=== PATIENT | female | born 1995 | race Caucasian/White ===

== ENCOUNTER 2018-09-04 22:32 | Emergency (ER) | payer OTHER, SELFPAY ==
--- NOTE | 2018-09-04 22:37 | ED_ITS ---
HPI - General Adult General Chief complaint: Shortness of Breath/Dyspnea Stated complaint: ASTHMA ATTACK SICK WITH A COLD Time Seen by Provider: 09/04/18 22:34 Source: patient Mode of arrival: ambulatory Limitations: no limitations History of Present Illness HPI narrative: 22-year-old female here for evaluation of an asthma attack which he thinks is a cold. Patient does have a history of asthma. Has never been intubated or admitted before. Does have a Flovent inhaler at home. States she on average only occasionally uses her rescue albuterol inhaler. She states that a couple weeks ago she was seen at an outside Emergency Department for an asthma attack after being exposed to animals. She states she was started on prednisone. She stopped the prednisone approximately 10 days ago. She states that over the past 12-24 hours she has had a recurrence of the chest tightness and cough. She does so has sinus congestion. She did use her albuterol at home. She does not have a nebulizer at home. No fevers. Related Data Allergies Allergy/AdvReac Type Severity Reaction Status Date / Time No Known Drug Allergies Allergy Verified 09/04/18 22:52 Review of Systems Constitutional Denies chills and Denies fever(s) Eyes Denies itchy eyes ENT Ears, Nose, Mouth, and Throat: Denies lip swelling, Denies throat swelling and Denies tongue swelling Cardiovascular Denies chest pain, Denies palpitations and Reports dyspnea Respiratory Reports cough, Denies excessive phlegm production, Reports dyspnea and Reports wheezing Gastrointestinal Gastrointestinal: Denies change in bowel habits Musculoskeletal Denies myalgias and Denies arthralgias Integumentary/Breasts Denies rash Endocrine Denies palpitations Allergic/Immunologic Denies urticaria, Denies itchy eyes, Denies lip swelling, Denies throat swelling , Denies tongue swelling and Reports wheezing PFSH Medical History Asthma (Acute) Surgical History No pertinent past surgical history (Acute) Social History Smoking Status: Never smoker Exam Initial Vital Signs Initial Vital Signs: Vital Signs Temperature 98.5 F 09/04/18 22:49 Pulse Rate 107 H 09/04/18 22:49 Respiratory Rate 24 09/04/18 22:49 Blood Pressure 101/65 09/04/18 22:49 Pulse Oximetry 98 09/04/18 22:49 Const General: cooperative, healthy appearing, comfortable, well developed, well groomed and No acute distress Orientation: alert, awake and oriented x3 HENMT Head: normal to inspection Resp Effort & Inspection: no grunting, not labored, no nasal flaring, no retractions and tachypneic Auscultation: other (Decreased breath sounds bilaterally with inspiratory and expiratory wheezing) Cardio Rate: tachycardic Rhythm: regular rhythm Skin Lesions: no lesions Rashes: no rashes Neuro General: alert, awake and oriented x3 Extrem General: normal to inspection and capillary refill normal Psych Appearance: grossly normal and well kempt Course Orders Ordered: Discontinued Medications Albuterol/Ipratropium (Duoneb) 3 ml INH NOW ONE Stop: 09/04/18 22:43 Last Admin: 09/04/18 22:47 Dose: 3 ml Albuterol/Ipratropium (Duoneb) 3 ml INH NOW ONE Stop: 09/04/18 23:45 Last Admin: 09/04/18 23:48 Dose: 3 ml Vital Signs - 8 hr 09/04/18 22:49 09/04/18 23:52 Temperature 98.5 F Pulse Rate 107 H 88 Respiratory Rate 24 18 Blood Pressure 101/65 Pulse Oximetry 98 97 Medical Decision Making MDM Narrative Medical decision making narrative: Patient reports a great improvement in her symptoms after 2 nebulizer treatments here in the emergency department. Will hold on steroids secondary to her status. Patient is afebrile. Will hold on the chest x-ray secondary to my low concern for pneumonia and also her status. She does have albuterol at home. Patient stated that she felt like she could go home after the 2nd nebulizer treatment. She was given return precautions. She expressed understanding and agreement with plan. Discharge Plan Departure Patient Disposition: Home Clinical Impression: Asthma with exacerbation Instructions: Asthma -- Adult Activity Restrictions/Additional Instructions: I recommend that every 4 hr for the next 24 hr while your wake you take a couple puffs of your albuterol inhaler. Contact your primary care doctor for a follow-up. Keep all of your scheduled medical appointments to include OB appointments. I do recommend you talk with her OB provider about your asthma. Return to the emergency department for any new or worsening symptoms
[2018-09-04] MEDS: ALBUTEROL/IPRATROPIUM 3 ML AMPUL INH ×2 (22:47→23:48)
[2018-09-04 22:49] VITALS: BP 101/65; PULSE 107; RESP 24; TEMP 36.9; O2SAT 98
[2018-09-04 23:52] VITALS: PULSE 88; RESP 18; O2SAT 97
[2018-09-05] VITALS: PULSE 118; RESP 22; O2SAT 96
[2018-09-05 00:58] VITALS: BP 127/59; PULSE 101; RESP 18; O2SAT 98
== END 2018-09-05 00:59 | disposition home or self-care (01) ==
PROVIDERS: Emergency Provider Emergency Medicine
DX: J45.901 Unspecified asthma with (acute) exacerbation (principal)
CPT/HCPCS: 94640; 99282

== ENCOUNTER 2018-11-02 23:58 | Outpatient (CLI) | payer OTHER, SELFPAY | END 2018-11-03 00:30 | disposition home or self-care (01) | LOC: OB 11-03 14:57 | PROVIDERS: Visit Provider Specialist | DX: O36.8120 Decreased fetal movements, second trimester, not applicable or unspecified (principal); Z3A.27 27 weeks gestation of pregnancy; W19.XXXA Unspecified fall, initial encounter | CPT/HCPCS: 59025; G0378; G0379 ==

== ENCOUNTER 2018-12-18 14:04 | Observation (INO) | payer OTHER, SELFPAY ==
[2018-12-18 15:13] LABS: Add Manual Diff / Slide Review NO; Basophils Absolute Auto 0 /uL (0-100); Basophils Percent Auto 0.4 % (0-2); Eosinophils Absolute Auto 200 /uL (0-450); Eosinophils Percent Auto 1.7 % (2-4); Hematocrit 37.4 % (36-46); Hemoglobin 12.1 g/dL (12.0-16.0); Lymphocytes Absolute Auto 1800 /uL (1100-4500); Lymphocytes Percent Auto 16.2 % (25-40); Mean Corpuscular HGB Conc 32.4 % (30-36); Mean Corpuscular Hemoglobin 27.5 PG (26-34); Mean Corpuscular Volume 84.9 fL (80-100); Monocytes Absolute Auto 800 /uL (0-900); Monocytes Percent Auto 7.4 % (3-14); Neutrophils Absolute Auto 8300 /uL (1500-7000); Neutrophils Percent Auto 74.3 % (50-75); Platelet Count 255 X10^3/uL (150-400); Red Blood Cell Count 4.41 X10^6/uL (4.0-5.2); Red Cell Distribution Width 13.8 % (11.6-14.8); White Blood Cell Count 11.2 X10^3/uL (4.5-11.0)
[2018-12-18 15:29] LABS: Aspartate Aminotransferase 27 IU/L (14-36); Blood Urea Nitrogen 7 mg/dL (7-17); Estimated Glomerular Filt Rate > 60.0 mL/min (>60); Uric Acid 4.2 mg/dL (2.5-6.2)
== END 2018-12-18 16:10 | disposition home or self-care (01) ==
PROVIDERS: Admitting Provider Obstetrics & Gynecology; Visit Provider Obstetrics & Gynecology
DX: O13.3 Gestational [pregnancy-induced] hypertension without significant proteinuria, third trimester (principal); Z3A.33 33 weeks gestation of pregnancy
CPT/HCPCS: 36415; 59025; 59050; 84450; 84550; 85025; G0378; G0379

== ENCOUNTER 2018-12-22 18:46 | Outpatient (CLI) | payer OTHER, SELFPAY ==
[2018-12-22 19:59] LABS: RBC Urine None Seen (0-5/HPF)
[2018-12-22 20:00] LABS: Appearance Urine UA CLOUDY; Bilirubin Urine UA NEGATIVE (NEGATIVE); Color Urine UA YELLOW; Glucose Urine UA NEGATIVE (Negative); Ketones Urine UA NEGATIVE (NEGATIVE); Leukocyte Esterase Urine UA TRACE (NEGATIVE); Nitrite Urine UA NEGATIVE (Negative); Occult Blood Urine UA NEGATIVE (Negative); Protein Urine UA 1+ (Negative); Specific Gravity Urine UA 1.025 (1.000-1.035); Urobilinogen Urine UA 0.2 E.U./dL (0.2)
[2018-12-22 20:10] LABS: WBC Urine 10-30/HPF (0-5/HPF)
[2018-12-22 20:11] LABS: Amorphous Sediment Urine 1+; Bacteria Urine Many (>30); Culture Indicated Urine Specimen Cultured; Mucus Urine 2+ (Negative); Squamous Epithelial Cell Urine 5-10 /HPF; Transitional Epi Cells Urine 1-5/HPF (0-5/HPF)
[2018-12-22 20:33] LABS: Add Manual Diff / Slide Review NO; Basophils Absolute Auto 0 /uL (0-100); Basophils Percent Auto 0.4 % (0-2); Eosinophils Absolute Auto 300 /uL (0-450); Eosinophils Percent Auto 2.7 % (2-4); Hematocrit 35.6 % (36-46); Lymphocytes Absolute Auto 1900 /uL (1100-4500); Lymphocytes Percent Auto 20.1 % (25-40); Mean Corpuscular HGB Conc 33.8 % (30-36); Mean Corpuscular Hemoglobin 28.2 PG (26-34); Mean Corpuscular Volume 83.4 fL (80-100); Monocytes Absolute Auto 800 /uL (0-900); Monocytes Percent Auto 8.1 % (3-14); Neutrophils Absolute Auto 6500 /uL (1500-7000); Neutrophils Percent Auto 68.7 % (50-75); Platelet Count 261 X10^3/uL (150-400); Red Blood Cell Count 4.26 X10^6/uL (4.0-5.2); Red Cell Distribution Width 13.8 % (11.6-14.8); White Blood Cell Count 9.4 X10^3/uL (4.5-11.0)
[2018-12-22 20:44] LABS: Aspartate Aminotransferase 34 IU/L (14-36); Blood Urea Nitrogen 9 mg/dL (7-17); Estimated Glomerular Filt Rate > 60.0 mL/min (>60); Uric Acid 4.5 mg/dL (2.5-6.2)
== END 2018-12-22 21:45 | disposition home or self-care (01) ==
LOC: OB 12-24 14:08
PROVIDERS: Visit Provider Obstetrics & Gynecology
DX: O13.3 Gestational [pregnancy-induced] hypertension without significant proteinuria, third trimester (principal); Z3A.34 34 weeks gestation of pregnancy
CPT/HCPCS: 36415; 59025; 59050; 81001; 84450; 84550; 85025; 87086; G0378; G0379

== ENCOUNTER 2018-12-25 16:42 | Outpatient (CLI) | payer OTHER, SELFPAY ==
[2018-12-25 17:32] LABS: Add Manual Diff / Slide Review NO; Basophils Absolute Auto 0 /uL (0-100); Basophils Percent Auto 0.2 % (0-2); Eosinophils Absolute Auto 300 /uL (0-450); Eosinophils Percent Auto 2.8 % (2-4); Hematocrit 35.8 % (36-46); Hemoglobin 11.9 g/dL (12.0-16.0); Lymphocytes Absolute Auto 1700 /uL (1100-4500); Lymphocytes Percent Auto 17.1 % (25-40); Mean Corpuscular HGB Conc 33.3 % (30-36); Mean Corpuscular Hemoglobin 27.8 PG (26-34); Mean Corpuscular Volume 83.6 fL (80-100); Monocytes Absolute Auto 800 /uL (0-900); Monocytes Percent Auto 7.6 % (3-14); Neutrophils Absolute Auto 7400 /uL (1500-7000); Neutrophils Percent Auto 72.3 % (50-75); Platelet Count 266 X10^3/uL (150-400); Red Blood Cell Count 4.28 X10^6/uL (4.0-5.2); Red Cell Distribution Width 13.7 % (11.6-14.8); White Blood Cell Count 10.2 X10^3/uL (4.5-11.0)
[2018-12-25 17:51] LABS: Alanine Aminotransferase 30 IU/L (9-52); Albumin 3.2 g/dL (3.5-5.0); Albumin Globulin Ratio 1.1 (1.0-2.8); Alkaline Phosphatase 147 U/L (38-126); Aspartate Aminotransferase 24 IU/L (14-36); BUN Creatinine Ratio 13.3 (6-22); Bilirubin Total 0.2 mg/dL (0.2-1.3); Bilirubin Unconjugated 0.2 mg/dL (0.0-1.1); Blood Urea Nitrogen 8 mg/dL (7-17); Calcium 8.9 mg/dL (8.4-10.2); Carbon Dioxide 24 mmol/L (22-32); Chloride 108 mmol/L (98-107); Estimated Glomerular Filt Rate > 60.0 mL/min (>60); Globulin 2.9 g/dL (1.7-4.1); Glucose 83 mg/dL (70-100); HEMOLYSIS < 15 (0-50); Potassium 3.9 mmol/L (3.4-5.1); Sodium 138 mmol/L (137-145); Total Protein 6.1 g/dL (6.3-8.2); Uric Acid 4.7 mg/dL (2.5-6.2)
--- NOTE | 2018-12-25 18:27 | PM.OBTRLD ---
Visit Information Visit Information Date of evaluation: 12/25/18 Primary OB Provider: Liv Almazan On-call OB Provider: Vinita Hardy Reason for Evaluation: Yes non-stress test non-stress test reason: hypertension/pre-eclampsia Vital Signs Vital Signs: Blood pressure range 145/95 to 132/82 [facility] Medical History (Updated 12/25/18 @ 18:40 by Vinita Hardy MD) Asthma (Acute) Surgical History (Updated 09/04/18 @ 23:21 by Oliver Serna DO) No pertinent past surgical history (Acute) Social History Smoking Status: Never smoker Social History Smoking Status: Never smoker Objective Labs Result Diagrams: 12/25/18 17:22 12/25/18 17:22 Labs: Laboratory Results - last 24 hr 12/25/18 12/25/18 17:22 17:22 WBC 10.2 RBC 4.28 Hgb 11.9 L Hct 35.8 L MCV 83.6 MCH 27.8 MCHC 33.3 RDW 13.7 Plt Count 266 Neut % (Auto) 72.3 Lymph % (Auto) 17.1 L [place] % (Auto) 7.6 Eos % (Auto) 2.8 Baso % (Auto) 0.2 Neut # (Auto) 7400 H Lymph # (Auto) 1700 [place] # (Auto) 800 Eos # (Auto) 300 Baso # (Auto) 0 Sodium 138 Potassium 3.9 Chloride 108 H Carbon Dioxide 24 BUN 8 Creatinine 0.60 Estimated GFR > 60.0 BUN/Creatinine Ratio 13.3 Glucose 83 Uric Acid 4.7 Calcium 8.9 Total Bilirubin 0.2 Conjugated Bilirubin 0.0 Unconjugated Bilirubin 0.2 AST 24 ALT 30 Alkaline Phosphatase 147 H Total Protein 6.1 L Albumin 3.2 L Globulin 2.9 Albumin/Globulin Ratio 1.1 Evaluation Evaluation Baseline heart rate: 130 Variability: Moderate (11-25) monitor accelerations: Present monitor decelerations: Absent Contraction Frequency (minutes): 0 Category of Tracing: I Laboratory results: Laboratory Tests 12/25/18 12/25/18 17:22 17:22 WBC 10.2 RBC 4.28 Hgb 11.9 L Hct 35.8 L MCV 83.6 MCH 27.8 MCHC 33.3 RDW 13.7 Plt Count 266 Neut % (Auto) 72.3 Lymph % (Auto) 17.1 L [place] % (Auto) 7.6 Eos % (Auto) 2.8 Baso % (Auto) 0.2 Neut # (Auto) 7400 H Lymph # (Auto) 1700 [place] # (Auto) 800 Eos # (Auto) 300 Baso # (Auto) 0 Sodium 138 Potassium 3.9 Chloride 108 H Carbon Dioxide 24 BUN 8 Creatinine 0.60 Estimated GFR > 60.0 BUN/Creatinine Ratio 13.3 Glucose 83 Uric Acid 4.7 Calcium 8.9 Total Bilirubin 0.2 Conjugated Bilirubin 0.0 Unconjugated Bilirubin 0.2 AST 24 ALT 30 Alkaline Phosphatase 147 H Total Protein 6.1 L Albumin 3.2 L Globulin 2.9 Albumin/Globulin Ratio 1.1 Diagnosis, Plan/Disposition Final Diagnosis (1) Hypertension affecting in third trimester: Current Visit: Yes Status: Acute Problem details: 34 week 6 day with hypertension, beginning proteinuria with stable PIH labs Plan/Disposition Plan: Patient is to follow up in 3 days. She is to rest and call if she has increasing headache with scotomata, decreased movement, other concerns OB Disposition: home
--- NOTE | 2018-12-25 18:30 | P.TNLD_ITS ---
Visit Information Visit Information Date of evaluation: 12/25/18 Primary OB Provider: Liv Almazan On-call OB Provider: Vinita Hardy Reason for Evaluation: Yes non-stress test non-stress test reason: hypertension/pre-eclampsia Vital Signs Vital Signs: Blood pressure range 145/95 to 132/82 [facility] Medical History (Updated 12/25/18 @ 18:40 by Vinita Hardy MD) Asthma (Acute) Surgical History (Updated 09/04/18 @ 23:21 by Oliver Serna DO) No pertinent past surgical history (Acute) Social History Smoking Status: Never smoker Social History Smoking Status: Never smoker Objective Labs Result Diagrams: 12/25/18 17:22 12/25/18 17:22 Labs: Laboratory Results - last 24 hr 12/25/18 12/25/18 17:22 17:22 WBC 10.2 RBC 4.28 Hgb 11.9 L Hct 35.8 L MCV 83.6 MCH 27.8 MCHC 33.3 RDW 13.7 Plt Count 266 Neut % (Auto) 72.3 Lymph % (Auto) 17.1 L [place] % (Auto) 7.6 Eos % (Auto) 2.8 Baso % (Auto) 0.2 Neut # (Auto) 7400 H Lymph # (Auto) 1700 [place] # (Auto) 800 Eos # (Auto) 300 Baso # (Auto) 0 Sodium 138 Potassium 3.9 Chloride 108 H Carbon Dioxide 24 BUN 8 Creatinine 0.60 Estimated GFR > 60.0 BUN/Creatinine Ratio 13.3 Glucose 83 Uric Acid 4.7 Calcium 8.9 Total Bilirubin 0.2 Conjugated Bilirubin 0.0 Unconjugated Bilirubin 0.2 AST 24 ALT 30 Alkaline Phosphatase 147 H Total Protein 6.1 L Albumin 3.2 L Globulin 2.9 Albumin/Globulin Ratio 1.1 Evaluation Evaluation Baseline heart rate: 130 Variability: Moderate (11-25) monitor accelerations: Present monitor decelerations: Absent Contraction Frequency (minutes): 0 Category of Tracing: I Laboratory results: Laboratory Tests 12/25/18 12/25/18 17:22 17:22 WBC 10.2 RBC 4.28 Hgb 11.9 L Hct 35.8 L MCV 83.6 MCH 27.8 MCHC 33.3 RDW 13.7 Plt Count 266 Neut % (Auto) 72.3 Lymph % (Auto) 17.1 L [place] % (Auto) 7.6 Eos % (Auto) 2.8 Baso % (Auto) 0.2 Neut # (Auto) 7400 H Lymph # (Auto) 1700 [place] # (Auto) 800 Eos # (Auto) 300 Baso # (Auto) 0 Sodium 138 Potassium 3.9 Chloride 108 H Carbon Dioxide 24 BUN 8 Creatinine 0.60 Estimated GFR > 60.0 BUN/Creatinine Ratio 13.3 Glucose 83 Uric Acid 4.7 Calcium 8.9 Total Bilirubin 0.2 Conjugated Bilirubin 0.0 Unconjugated Bilirubin 0.2 AST 24 ALT 30 Alkaline Phosphatase 147 H Total Protein 6.1 L Albumin 3.2 L Globulin 2.9 Albumin/Globulin Ratio 1.1 Diagnosis, Plan/Disposition Final Diagnosis (1) Hypertension affecting in third trimester: Current Visit: Yes Status: Acute Problem details: 34 week 6 day with hypertension, beginning proteinuria with stable PIH labs Plan/Disposition Plan: Patient is to follow up in 3 days. She is to rest and call if she has increasing headache with scotomata, decreased movement, other concerns OB Disposition: home
== END 2018-12-25 18:36 | disposition home or self-care (01) ==
LOC: LABOR 18:33 → OB 12-28 10:05
PROVIDERS: Specialist; Visit Provider Obstetrics & Gynecology
DX: O16.3 Unspecified maternal hypertension, third trimester (principal); Z3A.34 34 weeks gestation of pregnancy
CPT/HCPCS: 36415; 59025; 59050; 80053; 80076; 84550; 85025; 87653; G0378; G0379

== ENCOUNTER 2018-12-30 10:23 | Inpatient (IN) | payer OTHER, SELFPAY ==
--- NOTE | 2018-12-30 11:08 | P.HPOB_ITS ---
OB HPI Date/Time Date of admission: 12/30/18 Date Patient Seen: 12/30/18 Time Patient Seen: 11:06 History of Present Condition Chief complaint: OBSERVATION : 1 Para: 0 Estimated Date of Delivery: 01/26/19 Estimated Gestational Age (weeks): 36 Narrative: Day Solo is a 23 year old female with signs and symptoms concerning for preeclampsia Indications Indication for induction OB: medical complication (Preeclampsia) History of Present care: good care and initiated at week # (7) Dating criteria: based on 1st trimester US only Ultrasounds: normal mid trimester US Obstetrical complications: preeclampsia Medical complications: none Preadmission Labs Blood type: O (+) positive -: Antibody screen: negative, GBS status: negative, HBsAG: negative, HIV: negative and RPR/VDLR: negative -: Chlamydia screen: not detected and Gonorrhea screen: not detected -: Rubella: immune and Varicella: immune HCAB: negative Quad screen: Normal 1 hr GTT: 143 Narrative: I do not see results for 3 hour GTT Evaluation Evaluation Baseline heart rate: 140 Variability: Moderate (11-25) monitor accelerations: Present monitor decelerations: Absent Contraction Frequency (minutes): 0 Category of Tracing: I Cervical dilation (cm): 1 Cervical effacement (%): 80 station: -3 PFSH Medical History (Updated 12/25/18 @ 18:40 by Vinita Hardy MD) Asthma (Acute) Surgical History (Updated 09/04/18 @ 23:21 by Oliver Serna DO) No pertinent past surgical history (Acute) Social History Smoking Status: Never smoker Social History Smoking Status: Never smoker Meds Home Medications Medication Instructions Recorded Confirmed Type albuterol sulfate [ProAir HFA] 1 - 2 puff INHALATION PRN PRN 12/30/18 12/30/18 History fluticasone propion-salmeterol 2 puff INHALATION BID 12/30/18 12/30/18 History [Advair Diskus] venlafaxine [Effexor XR] 150 mg PO DAILY 12/30/18 12/30/18 History Allergies Allergy/AdvReac Type Severity Reaction Status Date / Time No Known Drug Allergies Allergy Verified 09/04/18 22:52 Review of Systems Review of Systems Patient complaining of extreme swelling of her extremities, headache without scotomata, good movement, no leakage of fluid. All systems reviewed & are unremarkable except as noted in HPI and below Exam Narrative Exam Narrative: HEENT exam within normal limits. Lungs are clear to auscultation percussion. Heart is regular rate and rhythm no S3-S4 or murmurs. Abdomen is soft, nontender. The patient has +2 pitting edema with brisk DTRs. Objective Labs Result Diagrams: 12/30/18 11:40 12/30/18 11:40 Labs: Normal LFTs, a 24 hr urine protein is 315 mg per day Assessment and Plan Assessment and Plan Assessment and Plan narrative: 36 week gestation with mild preeclampsia. Will proceed with induction. Will monitor for need for antihypertensive medication and magnesium sulfate. Time Spent with Patient Total time spent with greater than 50% in coordination of care (as documented) sonido carr patient's floor/unit and/or counseling patient:: 15-24 minutes
[2018-12-30 12:01] LABS: Collection Time Urine 24 Hours; Creat Clearance, Corrected 115.4 mL/MIN; Creatinine Clearance Urine 158.7 mL/MIN; Creatinine Urine Random 91.4 mg/dL; Patient Height Urine 66 inches; Patient Weight Urine 303 lbs; Protein (Total) Urine Random 21 mg/dL (0-12); Total Protein 24 Hour Urine 315 mg/day (42-225); Total Volume Urine 1500 mL
[2018-12-30 12:52] LABS: Strep Grp B PCR NEG for Grp B Strep
[2018-12-30 12:58] LABS: Add Manual Diff / Slide Review NO; Basophils Absolute Auto 0 /uL (0-100); Basophils Percent Auto 0.3 % (0-2); Eosinophils Absolute Auto 500 /uL (0-450); Eosinophils Percent Auto 4.4 % (2-4); Hematocrit 39.7 % (36-46); Hemoglobin 12.9 g/dL (12.0-16.0); Lymphocytes Absolute Auto 2600 /uL (1100-4500); Lymphocytes Percent Auto 21.9 % (25-40); Mean Corpuscular HGB Conc 32.6 % (30-36); Mean Corpuscular Hemoglobin 27.4 PG (26-34); Mean Corpuscular Volume 84.2 fL (80-100); Monocytes Absolute Auto 1000 /uL (0-900); Monocytes Percent Auto 8.2 % (3-14); Neutrophils Absolute Auto 7800 /uL (1500-7000); Neutrophils Percent Auto 65.2 % (50-75); Platelet Count 286 X10^3/uL (150-400); Red Blood Cell Count 4.72 X10^6/uL (4.0-5.2); Red Cell Distribution Width 13.9 % (11.6-14.8); White Blood Cell Count 11.9 X10^3/uL (4.5-11.0)
[2018-12-30] MEDS: PENICILLIN G POTASSIUM 5,000,000 UNIT in DEXTROSE 5% IN WATER 250 ML IV (13:00)
[2018-12-30 13:18] LABS: Alanine Aminotransferase 31 IU/L (9-52); Albumin 3.8 g/dL (3.5-5.0); Albumin Globulin Ratio 1.3 (1.0-2.8); Alkaline Phosphatase 178 U/L (38-126); Aspartate Aminotransferase 33 IU/L (14-36); Bilirubin Total 0.3 mg/dL (0.2-1.3); Blood Urea Nitrogen 6 mg/dL (7-17); Calcium 9.3 mg/dL (8.4-10.2); Carbon Dioxide 21 mmol/L (22-32); Chloride 107 mmol/L (98-107); Estimated Glomerular Filt Rate > 60.0 mL/min (>60); Glucose 63 mg/dL (70-100); HEMOLYSIS 17 (0-50); Potassium 4.1 mmol/L (3.4-5.1); Sodium 136 mmol/L (137-145); Total Protein 6.8 g/dL (6.3-8.2)
[2018-12-30] MEDS: LACTATED RINGERS 1,000 ML 100 ML IV (14:19)
[2018-12-30] MEDS: OXYTOCIN PREMIX 30 UNIT/500 ML PLAST..BAG IV (14:21)
[2018-12-30] MEDS: VENLAFAXINE ER 75 MG CAP 150 MG PO (14:29)
[2018-12-30 15:20] VITALS: BP 138/75
--- NOTE | 2018-12-30 21:16 | PM.OBPNLAB ---
Date/Time Date Patient Seen: 12/30/18 Time Patient Seen: 21:16 Pain Control Pain control: tolerating well Pelvic Exam Dilation (cm): 2 Effacement (%): 80 station: -3 Amniotic membrane status: Intact Contractions Monitor mode: Palpation Pitocin rate (mU/min): 18 Contraction frequency (min): 3 Contraction pattern: Regular Contraction intensity: Mild Status status: Category l Heart Rate Baseline: 150 Monitor Accelerations: Present Monitor Decelerations: Absent Monitor Variability: Moderate Assessment and Plan Assessment: induction ongoing (patient with minimal change despite 8 hours of pitocin. will rest tonight and begin again in am) Comments: continue to monitor for worsening preeclampsia
[2018-12-30] MEDS: FLUTICASONE/SALMETEROL 500/50 14 PUFF DISKUS INH (21:51)
[2018-12-31] MEDS: OXYTOCIN PREMIX 30 UNIT/500 ML PLAST..BAG IV (06:17)
[2018-12-31] MEDS: LACTATED RINGERS 1,000 ML 100 ML IV ×2 (06:17→15:07)
--- NOTE | 2018-12-31 07:31 | PM.OBPNLAB ---
Date/Time Date Patient Seen: 12/31/18 Time Patient Seen: 07:31 Pain Control Pain control: tolerating well Pelvic Exam Dilation (cm): 2 Effacement (%): 80 station: -3 Amniotic membrane status: Intact Contractions Contractions on admission: irregular Monitor mode: Palpation Pitocin rate (mU/min): 3 Contraction pattern: Irregular Contraction intensity: Mild Status status: Category l Heart Rate Baseline: 140 Monitor Accelerations: Present Monitor Decelerations: Absent Monitor Variability: Moderate Assessment and Plan Assessment: induction ongoing Plan: continuous present management Comments: BP max 150/80 BP current 140/68 no headache no scotomata
[2018-12-31] MEDS: VENLAFAXINE ER 75 MG CAP 150 MG PO (10:10)
[2018-12-31] MEDS: FLUTICASONE/SALMETEROL 500/50 14 PUFF DISKUS INH (10:31)
[2018-12-31 10:33] VITALS: PULSE 94; RESP 16; O2SAT 99
[2018-12-31] MEDS: CALCIUM CARBONATE 500 MG TAB 1000 MG PO ×2 (11:19→18:16)
--- NOTE | 2018-12-31 21:37 | PM.OBPNLAB ---
Date/Time Date Patient Seen: 12/31/18 Time Patient Seen: 21:37 Pain Control Pain control: epidural Pelvic Exam Dilation (cm): 7 Effacement (%): 90 station: -1 Amniotic membrane status: Ruptured Contractions Contractions on admission: regular Monitor mode: Internal Pitocin rate (mU/min): 22 Contraction frequency (min): 3 Contraction duration (min): 1 Contraction pattern: Regular Contraction intensity: Moderate Intrauterine tone measurement: 40 Status status: Category l Heart Rate Baseline: 150 Monitor Accelerations: Present Monitor Decelerations: Absent Monitor Variability: Moderate Assessment and Plan Assessment: induction ongoing Plan: continuous present management
[2019-01-01] MEDS: miSOPROStol 200 MCG TABLET 800 MCG PR (00:25)
--- NOTE | 2019-01-01 00:44 | PM.OBPRVD ---
Events: Pre-Eclampsia Delivery date: 01/01/19 Intrapartal events: Mild Preeclampsia Induction method: per pitocin protocol Delivery monitor: external FHT, external uterine, internal FHT and internal uterine Route of delivery: L&D Laceration Description: Vaginal - 1st Degree Delivery repair: chromic (3-0) Estimated blood loss (mL): 350 Anesthesia type: Epidural Narrative: Patient arrived on Labor and delivery for induction for preeclampsia at 36 weeks. She received Pitocin for approximately 8 hours with no significant change in cervix so was slept overnight and Pitocin restarted. She was AROMed for clear fluid and received an epidural catheter for pain control. heart tones category 1 to category 2 throughout labor. When she became complete there was a prolonged deceleration but resolved with position change, O2, IV bolus and discontinuing Pitocin. The baby delivered spontaneously, over an intact perineum. The female was placed on maternal abdomen but after 1 minute the cord was clamped, cut, and cord bloods obtained. The infant was transferred to the warmer where she received approximately 15 seconds of PPV. After 10 minutes the was returned to the maternal abdomen. The placenta delivered spontaneously, intact, with 3 vessels. There were no cervical or perineal tears. There was a first-degree vaginal tear that was repaired with 3 0 chromic suture. Due to the bleeding she received 800 mcg of Cytotec perirectally along with a bolus of Pitocin. Both and mother doing well. Baby 1: gender: Female Presentation: vertex position: Right Occiput Anterior Placenta delivery description: Spontaneous cord vessel description: Nuchal Cord score (1 min): 6 score (5 min): 6 score (10 min): 9 Plan for aftercare: Monitor preeclampsia, routine care
[2019-01-01] MEDS: IBUPROFEN 600 MG TABLET PO ×3 (03:02→20:48)
[2019-01-01 08:20] LABS: Add Manual Diff / Slide Review NO; Basophils Absolute Auto 0 /uL (0-100); Basophils Percent Auto 0.2 % (0-2); Eosinophils Absolute Auto 100 /uL (0-450); Eosinophils Percent Auto 0.6 % (2-4); Hematocrit 30.6 % (36-46); Lymphocytes Absolute Auto 2600 /uL (1100-4500); Lymphocytes Percent Auto 17.8 % (25-40); Mean Corpuscular HGB Conc 32.8 % (30-36); Mean Corpuscular Hemoglobin 27.4 PG (26-34); Mean Corpuscular Volume 83.7 fL (80-100); Monocytes Absolute Auto 1300 /uL (0-900); Monocytes Percent Auto 9.2 % (3-14); Neutrophils Absolute Auto 10400 /uL (1500-7000); Neutrophils Percent Auto 72.2 % (50-75); Platelet Count 251 X10^3/uL (150-400); Red Blood Cell Count 3.65 X10^6/uL (4.0-5.2); Red Cell Distribution Width 13.5 % (11.6-14.8); White Blood Cell Count 14.5 X10^3/uL (4.5-11.0)
[2019-01-01 08:25] LABS: Alanine Aminotransferase 28 IU/L (9-52); Albumin 2.6 g/dL (3.5-5.0); Albumin Globulin Ratio 1.1 (1.0-2.8); Alkaline Phosphatase 125 U/L (38-126); Aspartate Aminotransferase 24 IU/L (14-36); Bilirubin Total 0.3 mg/dL (0.2-1.3); Bilirubin Unconjugated 0.3 mg/dL (0.0-1.1); Globulin 2.4 g/dL (1.7-4.1); HEMOLYSIS < 15 (0-50)
[2019-01-01 09:08] VITALS: PULSE 99; O2SAT 97
[2019-01-01] MEDS: FLUTICASONE/SALMETEROL 500/50 14 PUFF DISKUS INH ×2 (09:08→18:21)
[2019-01-01 10:10] VITALS: TEMP 36.8
[2019-01-01] MEDS: DOCUSATE 250 MG CAPSULE PO (10:10)
[2019-01-01] MEDS: DERMOPLAST SPRAY 20% 60 ML 1 SPRAY TOP (10:11)
[2019-01-01] MEDS: VENLAFAXINE ER 75 MG CAP 150 MG PO (10:30)
--- NOTE | 2019-01-01 13:17 | PM.OBPN.1 ---
Subjective - OB Patient comments: other (Complaint of feeling cold and chills) [place] baby status: doing well feeding status: exclusively breast feeding Narrative: Patient denies headaches and scotomata. Date Patient Seen: 01/01/19 Time Patient Seen: 07:45 Interval history: about 8 hours with no symptoms of preeclampsia. Exam Vital Signs (past 8 hours): - Blood pressure 148/88, pulse of 114, temperature 98.2? 01/01/19 09:08 01/01/19 10:10 Temperature 98.3 F Pulse Rate 99 H Pulse Oximetry 97 Oxygen Delivery Method Room Air Narrative Exam Narrative: Patient's abdomen is soft, nontender. uterus is firm, at U, nontender. mild lochia. Extremities with continued edema but nontender. brisk DTRs but no clonus Objective Labs Result Diagrams: 01/01/19 07:55 12/30/18 11:40 Labs: Laboratory Results - last 24 hr 01/01/19 01/01/19 07:55 07:55 WBC 14.5 H RBC 3.65 L Hgb 10.0 L Hct 30.6 L MCV 83.7 MCH 27.4 MCHC 32.8 RDW 13.5 Plt Count 251 Neut % (Auto) 72.2 Lymph % (Auto) 17.8 L [place] % (Auto) 9.2 Eos % (Auto) 0.6 L Baso % (Auto) 0.2 Neut # (Auto) 74949 H Lymph # (Auto) 2600 [place] # (Auto) 1300 H Eos # (Auto) 100 Baso # (Auto) 0 Total Bilirubin 0.3 Conjugated Bilirubin 0.0 Unconjugated Bilirubin 0.3 AST 24 ALT 28 Alkaline Phosphatase 125 D Total Protein 5.0 L Albumin 2.6 L Globulin 2.4 Albumin/Globulin Ratio 1.1 Assessment & Plan (1) Vaginal delivery: Status: Acute Current Visit: Yes (2) Preeclampsia: Problem details: Patient appears to be stable will monitor for worsening symptoms Status: Acute Current Visit: Yes Time Spent With Patient Total time spent is greater than 50% in coordination of care (as documented) at patient's floor/unit and/or counseling patient: less than 15 minutes
--- NOTE | 2019-01-01 13:21 | P.PNOB_ITS ---
Subjective - OB Patient comments: other (Complaint of feeling cold and chills) [place] baby status: doing well feeding status: exclusively breast feeding Narrative: Patient denies headaches and scotomata. Date Patient Seen: 01/01/19 Time Patient Seen: 07:45 Interval history: about 8 hours with no symptoms of preeclampsia. Exam Vital Signs (past 8 hours): - Blood pressure 148/88, pulse of 114, temperature 98.2? 01/01/19 09:08 01/01/19 10:10 Temperature 98.3 F Pulse Rate 99 H Pulse Oximetry 97 Oxygen Delivery Method Room Air Narrative Exam Narrative: Patient's abdomen is soft, nontender. uterus is firm, at U, nontender. mild lochia. Extremities with continued edema but nontender. brisk DTRs but no clonus Objective Labs Result Diagrams: 01/01/19 07:55 12/30/18 11:40 Labs: Laboratory Results - last 24 hr 01/01/19 01/01/19 07:55 07:55 WBC 14.5 H RBC 3.65 L Hgb 10.0 L Hct 30.6 L MCV 83.7 MCH 27.4 MCHC 32.8 RDW 13.5 Plt Count 251 Neut % (Auto) 72.2 Lymph % (Auto) 17.8 L [place] % (Auto) 9.2 Eos % (Auto) 0.6 L Baso % (Auto) 0.2 Neut # (Auto) 36376 H Lymph # (Auto) 2600 [place] # (Auto) 1300 H Eos # (Auto) 100 Baso # (Auto) 0 Total Bilirubin 0.3 Conjugated Bilirubin 0.0 Unconjugated Bilirubin 0.3 AST 24 ALT 28 Alkaline Phosphatase 125 D Total Protein 5.0 L Albumin 2.6 L Globulin 2.4 Albumin/Globulin Ratio 1.1 Assessment & Plan (1) Vaginal delivery: Status: Acute Current Visit: Yes (2) Preeclampsia: Problem details: Patient appears to be stable will monitor for worsening symptoms Status: Acute Current Visit: Yes Time Spent With Patient Total time spent is greater than 50% in coordination of care (as documented) at patient's floor/unit and/or counseling patient: less than 15 minutes
[2019-01-01 18:23] VITALS: PULSE 67; RESP 12; O2SAT 98
[2019-01-01] MEDS: LABETALOL 100 MG TABLET PO (22:46)
[2019-01-02] MEDS: IBUPROFEN 600 MG TABLET PO ×2 (07:29→18:50)
[2019-01-02] MEDS: FLUTICASONE/SALMETEROL 500/50 14 PUFF DISKUS INH ×2 (09:20→18:28)
[2019-01-02] MEDS: ALBUTEROL HFA 60 PUFF/8 GM INH INH (09:20)
[2019-01-02 09:27] VITALS: BP 129/86; PULSE 92
[2019-01-02] MEDS: VENLAFAXINE ER 75 MG CAP 150 MG PO (09:27)
[2019-01-02] MEDS: LABETALOL 100 MG TABLET PO ×2 (09:27→20:58)
[2019-01-02 11:26] VITALS: PULSE 74; RESP 16; O2SAT 97
--- NOTE | 2019-01-02 12:12 | PM.OBPN.1 ---
Subjective - OB Patient comments: no complaints baby status: doing well (jaundice) feeding status: exclusively breast feeding (with supplement) Narrative: Patient denies headaches and scotomata. No epigastric pain. She is urinating and ambulating well. She still complains of discomfort with a swelling in her legs. Mild bleeding. Date Patient Seen: 01/02/19 Time Patient Seen: 12:14 Exam Vital Signs (past 8 hours): - Blood pressure 129/86, pulse of 92, temperature 98.2? 01/02/19 09:27 01/02/19 11:26 Pulse Rate 92 H 74 Respiratory Rate 16 Blood Pressure 129/86 Pulse Oximetry 97 Fraction of Inspired Oxygen 21 Oxygen Delivery Method Room Air Oxygen Flow Rate 0 Narrative Exam Narrative: Abdomen is soft, nontender. Uterus is firm, at U, nontender. Normal lochia. Extremities with +1 edema and nontender. Objective Labs Result Diagrams: 01/01/19 07:55 12/30/18 11:40 Assessment & Plan (1) Vaginal delivery: Status: Acute Current Visit: Yes (2) Preeclampsia: Problem details: Patient appears to be stable will monitor for worsening symptoms, patient was started on blood pressure medicine as her blood pressure was increasing slightly but is stable now. Status: Acute Current Visit: Yes Time Spent With Patient Total time spent is greater than 50% in coordination of care (as documented) at patient's floor/unit and/or counseling patient: less than 15 minutes
[2019-01-02 14:13] LABS: Add Manual Diff / Slide Review NO; Basophils Absolute Auto 0 /uL (0-100); Basophils Percent Auto 0.3 % (0-2); Eosinophils Absolute Auto 400 /uL (0-450); Eosinophils Percent Auto 3.9 % (2-4); Hematocrit 28.7 % (36-46); Hemoglobin 9.4 g/dL (12.0-16.0); Lymphocytes Absolute Auto 2000 /uL (1100-4500); Lymphocytes Percent Auto 18.1 % (25-40); Mean Corpuscular HGB Conc 32.9 % (30-36); Mean Corpuscular Hemoglobin 27.8 PG (26-34); Mean Corpuscular Volume 84.6 fL (80-100); Monocytes Absolute Auto 800 /uL (0-900); Monocytes Percent Auto 6.9 % (3-14); Neutrophils Absolute Auto 8000 /uL (1500-7000); Neutrophils Percent Auto 70.8 % (50-75); Platelet Count 256 X10^3/uL (150-400); Red Blood Cell Count 3.39 X10^6/uL (4.0-5.2); Red Cell Distribution Width 14.2 % (11.6-14.8); White Blood Cell Count 11.2 X10^3/uL (4.5-11.0)
[2019-01-02 14:22] LABS: Alanine Aminotransferase 24 IU/L (9-52); BUN Creatinine Ratio 14.3 (6-22); Blood Urea Nitrogen 10 mg/dL (7-17); Estimated Glomerular Filt Rate > 60.0 mL/min (>60)
[2019-01-02 18:29] VITALS: PULSE 80; RESP 12; O2SAT 100
[2019-01-02 20:58] VITALS: BP 135/85; PULSE 79
[2019-01-03] MEDS: FLUTICASONE/SALMETEROL 500/50 14 PUFF DISKUS INH (07:25)
[2019-01-03] MEDS: ALBUTEROL HFA 60 PUFF/8 GM INH INH (07:26)
[2019-01-03 07:29] VITALS: PULSE 70; RESP 16; O2SAT 98
[2019-01-03 10:51] VITALS: BP 134/88; PULSE 87
[2019-01-03] MEDS: LABETALOL 100 MG TABLET PO (10:51)
[2019-01-03] MEDS: VENLAFAXINE ER 75 MG CAP 150 MG PO (10:51)
--- NOTE | 2019-01-03 11:06 | PM.OBDS.1 ---
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 She received IV Pitocin for 2 days. She had a epidural catheter and a vaginal delivery with repair of a first-degree tear. Her laboratory values remain stable but her blood pressure increased so she was started on oral anti hypertensives. Patient denies any headaches, scotomata, epigastric pain. Her edema is improving slightly. She is pumping to feed the baby. She is ambulatory, urinating well, has had a bowel movement and has minimal bleeding. Blood pressure 134/86, pulse of 81, temperature 97? The patient's abdomen is soft, nontender. uterus is firm, at U, nontender. mild lochia. Extremities with + edema and nontender. Patient's blood type is O positive and she is rubella immune. Peripartum Data Delivery Method: Natural Vaginal Laceration description: Vaginal - 1st Degree Procedures: Pitocin induction, epidural catheter, vaginal delivery, repair of first-degree vaginal tear. complications: none 1: Gender: Female Disposition of : home Discharge Diagnosis (1) Vaginal delivery: Status: Acute (2) Preeclampsia: Status: Acute Problem Details: Patient appears to be stable will monitor for worsening symptoms, patient was started on blood pressure medicine as her blood pressure was increasing slightly but is stable now. (3) Anemia: Status: Acute Status at Discharge Cognitive/behavioral status at discharge: oriented Functional status at discharge: independent ambulation Overall status at discharge: patient is progressing back to baseline Time Spent with Patient Total time spent providing and/or coordinating discharge services: Less than 30 minutes Objective Labs Result Diagrams: 01/02/19 13:58 01/02/19 13:58 Labs: Laboratory Results - last 24 hr 01/02/19 01/02/19 13:58 13:58 WBC 11.2 H RBC 3.39 L Hgb 9.4 L Hct 28.7 L MCV 84.6 MCH 27.8 MCHC 32.9 RDW 14.2 Plt Count 256 Neut % (Auto) 70.8 Lymph % (Auto) 18.1 L [place] % (Auto) 6.9 Eos % (Auto) 3.9 Baso % (Auto) 0.3 Neut # (Auto) 8000 H Lymph # (Auto) 2000 [place] # (Auto) 800 Eos # (Auto) 400 Baso # (Auto) 0 BUN 10 Creatinine 0.70 Estimated GFR > 60.0 BUN/Creatinine Ratio 14.3 ALT 24 Exam Vital Signs (past 8 hours): - 01/03/19 07:29 01/03/19 10:51 Pulse Rate 70 87 Respiratory Rate 16 Blood Pressure 134/88 Pulse Oximetry 98 Fraction of Inspired Oxygen 21 Oxygen Delivery Method Room Air Oxygen Flow Rate 0 Discharge Plan Discharge Plan Patient Disposition: Home Discharge Med Rec/Prescriptions Prescriptions: New ibuprofen 600 mg Tablet 600 mg PO Q6HR PRN (Reason: Pain, Mild (1-3)) Qty: 30 RF: 0 labetalol 100 mg Tablet 100 mg PO BID Qty: 30 RF: 1 docusate sodium 250 mg Capsule 250 mg PO DAILY Qty: 20 RF: 0 breast pump device .ROUTE .MEDSUPPLY Qty: 1 RF: 0 ferrous gluconate 324 mg (38 mg iron) tablet 324 mg PO BID Qty: 60 RF: 0 Continued fluticasone propion-salmeterol 500-50 mcg/dose blister with device 2 puff Inhalation BID RF: 0 albuterol sulfate 90 mcg/actuation HFA aerosol inhaler 1 - 2 puff Inhalation PRN PRN (Reason: Shortness Of Breath) RF: 0 venlafaxine [Effexor XR] 150 mg capsule,extended release 24hr 150 mg PO DAILY RF: 0 Follow up/Referrals: Vinita Hardy MD [Physician] - 3-5 Days (BP check) Provider Discharge Instructions Diet: Regular Activity: nothing in vagina for 4 weeks Skin/Wound/Dressing Care Report to your healthcare provider any signs of infection, such as:: chills, fever and increased pain Discharge Data Attending Provider: Vinita Hardy Admit Date/Time: 12/30/18 10:23
[2019-01-03 11:27] VITALS: BP 134/88; PULSE 87; RESP 16; TEMP 36.8
== END 2019-01-03 16:45 | disposition home or self-care (01) | DRG 806 ==
LOC: LABOR 12:04
PROVIDERS: Admitting Provider Specialist; Visit Provider Specialist
DX: O14.04 Mild to moderate pre-eclampsia, complicating childbirth (principal); D62 Acute posthemorrhagic anemia; Z37.0 Single live birth; Z3A.36 36 weeks gestation of pregnancy; O70.0 First degree perineal laceration during delivery; O76 Abnormality in fetal heart rate and rhythm complicating labor and delivery
CPT/HCPCS: 01967; 36415; 59050; 59410; 80053; 80076; 82565; 82575; 84156; 84460; 84520; 85025; 86850; 86900; 86901; 87081; 87653; 94640; 94760; J2540; J2590; S0191

== ENCOUNTER → 2019-02-12 12:40 | Outpatient (CLI) | payer OTHER, SELFPAY ==
[2019-02-12 13:36] LABS: HCG Quantitative /Beta subunit < 2.39 mIU/mL
== END ==
PROVIDERS: Visit Provider Specialist
DX: Z32.01 Encounter for pregnancy test, result positive (principal)
CPT/HCPCS: 36415; 84702

== ENCOUNTER 2019-06-04 21:44 | Emergency (ER) | payer OTHER, SELFPAY ==
[2019-06-04 21:49] VITALS: BP 121/83; PULSE 70; RESP 16; TEMP 36.5; O2SAT 99; BMI 45.1
--- NOTE | 2019-06-04 22:42 | DI.RAD.S_ITS ---
PROCEDURE: XR HIP W PEL IF DONE BILAT 2V INDICATIONS: fall with pain TECHNIQUE: Single frontal view of the pelvis and cone down the bilateral frog leg views of both hips were obtained. COMPARISON: None. FINDINGS: Bones: No displaced fractures or dislocations. No suspicious bony lesions. The visualized pelvic ring appears intact. Mild degenerative changes of the pubis symphysis and sacroiliac joints are present. No significant degenerative changes of the hips are evident. Soft tissues: No suspicious soft tissue calcifications or masses. IMPRESSION: No acute osseous abnormality of the bilateral hips. Dictated by: Joss Lewis M.D. on 06/05/2019 at 7:09 Approved by: Joss Lewis M.D. on 06/05/2019 at 7:10
--- NOTE | 2019-06-04 22:42 | ED.BACK ---
HPI - Back Pain/Injury General Chief Complaint: Back Pain/Injury Stated Complaint: FALL 2 WKS AGO BACK AND HIP PAIN Time Seen by Provider: 06/04/19 21:50 Source: patient Mode of arrival: ambulatory Limitations: no limitations History of Present Illness HPI Narrative: 23-year-old female nonsmoker presents with a chief complaint of ongoing moderate low back pain for the past few weeks. It all started when she was leaving a motor home and slipped on the stairs while exiting and fell back into the stairs. Her pain is worse when she moves and improves with rest. She denies any numbness, tingling or weakness. She denies any trouble controlling bowel or bladder. She has no head or neck pain. She denies any other injury. She has no foot drop. MD Complaint: back pain Onset (ago): week(s) Duration: constant Similar Symptoms Previously: Yes Location: lumbar spine Severity: mild Quality: aching Radiation: none Relieving factors: immobilization Exacerbating factors: movement Context: fall Associated symptoms: denies other symptoms Related Data Home Medications Medication Instructions Recorded Confirmed albuterol sulfate 1 - 2 puff INHALATION PRN PRN 12/30/18 02/04/19 fluticasone propion-salmeterol 2 puff INHALATION BID 12/30/18 02/04/19 Previous Rx's Medication Instructions Recorded breast pump #1 each 01/03/19 ferrous gluconate 324 mg PO BID #60 tab 01/03/19 ibuprofen 600 mg PO Q6HR PRN #30 tab 01/03/19 labetalol 100 mg tablet 100 mg PO BID #60 tab 01/19/19 venlafaxine 75 mg capsule,extended 75 mg PO DAILY #90 cap 01/20/19 release 24 hr norethindrone (contraceptive) 0.35 0.35 mg PO DAILY #28 tab 02/04/19 mg tablet nystatin 100,000 unit/gram topical 1 applictn TOP .COMPLEX #30 gram 02/04/19 cream venlafaxine 150 mg 150 mg PO DAILY #90 cap 02/19/19 capsule,extended release 24 hr ketorolac 10 mg PO Q6H PRN #14 tab 06/04/19 lidocaine [Lidoderm] 1 patch TOP DAILY #30 each 06/04/19 Allergies Allergy/AdvReac Type Severity Reaction Status Date / Time No Known Drug Allergies Allergy Verified 02/04/19 09:29 Review of Systems Constitutional Constitutional: Denies chills, Denies fatigue, Denies fever(s), Denies frequent falls, Denies lethargy and Denies weakness Eyes Eyes: Denies change in vision, Denies eye discharge, Denies irritation and Denies loss of vision ENT Ears, Nose, Mouth, and Throat: Denies change in voice, Denies dizziness, Denies neck pain, Denies sore throat and Denies throat swelling Cardiovascular Cardiovascular: Denies chest pain, Denies irregular heart rhythm, Denies lightheadedness, Denies palpitations, Denies dyspnea, Denies dyspnea on exertion and Denies orthopnea Respiratory Respiratory: Denies cough, Denies dyspnea, Denies dyspnea on exertion and Denies wheezing Gastrointestinal Gastrointestinal: Denies abdominal pain, Denies change in bowel habits, Denies diarrhea, Denies nausea and Denies vomiting Genitourinary Genitourinary: Denies hematuria, Denies flank pain, Denies urinary incontinence and Denies urinary urgency Musculoskeletal Musculoskeletal: Reports back pain, Denies muscle weakness, Denies neck pain, Denies numbness and Denies tingling Integumentary/Breasts Skin/Breast: Denies pruritus, Denies erythema, Denies rash and Denies wounds Neurologic Neurologic: Denies behavioral changes, Denies confusion, Denies dizziness, Denies frequent falls, Denies loss of vision, Denies numbness, Denies tingling and Denies weakness Psychiatric Psychiatric: Denies anxiety, Denies behavioral changes, Denies confusion, Denies depression, Denies homicidal ideation and Denies suicidal ideation Endocrine Endocrine: Denies fatigue, Denies flushing and Denies palpitations Hematologic/Lymphatic Hematologic/Lymphatic: Denies easy bruising Allergic/Immunologic Allergic/Immunologic: Denies urticaria, Denies throat swelling and Denies wheezing [facility] Medical History (Updated 06/04/19 @ 23:38 by Dick Sue DO) Asthma (Acute) Surgical History (Updated 09/04/18 @ 23:21 by Oliver Serna DO) No pertinent past surgical history (Acute) Social History Smoking Status: Never smoker Social History Smoking Status: Never smoker Exam Narrative Exam Narrative: GENERAL: [22] year old patient appears stated age. Obese well-developed patient, in mild distress. HEAD: Atraumatic. Normocephalic. EYES: Pupils equal round and reactive. Extraocular motions intact. No scleral icterus. No injection or drainage. ENT: Nose without bleeding, purulent drainage. Throat without erythema, tonsillar hypertrophy or exudate. Airway patent. NECK: Trachea midline. Non tender CARDIOVASCULAR: Regular rate and rhythm without murmurs, gallops, or rubs. RESPIRATORY: Clear to auscultation. Breath sounds equal bilaterally. No wheezes, rales, or rhonchi. GASTROINTESTINAL: Abdomen soft, non-tender, nondistended. EXTREMITIES: No edema or joint tenderness. BACK: dye tub tender but free of any obvious external abnormalities. Patient exam notes decreased range of motion and muscle spasm, but no CVA tenderness, or vertebral point tenderness. There are no symptoms of cauda equina such as saddle anesthesia, and decreased reflexes, decreased sensation or strength. NEURO: AOx3. SKIN: No rash or erythema of visible areas Initial Vital Signs Initial Vital Signs: Vital Signs Temperature 97.7 F 06/04/19 21:49 Pulse Rate 70 06/04/19 21:49 Respiratory Rate 16 06/04/19 21:49 Blood Pressure 121/83 06/04/19 21:49 Pulse Oximetry 99 06/04/19 21:49 Course Vital Signs Vital signs: Vital Signs - 8 hr 06/04/19 21:49 Temperature 97.7 F Pulse Rate 70 Respiratory Rate 16 Blood Pressure 121/83 Pulse Oximetry 99 MDM - Back Pain/Injury Imaging Data L Spine: Radiologist's impression: [address] [address] XRay Report Signed Patient: Day Solo [facility]#: [id number] : 1995Acct:[id number] Age/Sex: 23 / FDate of Service: 06/04/19 Loc: ED Accession Number: [id number] Procedure: XR lumbar spine 2-3V Ordering Provider: Dick Sue D.O. PROCEDURE: XR LUMBAR SPINE 2-3V INDICATIONS: fall with pain TECHNIQUE: 3 views of the lumbar spine were acquired. COMPARISON: None. FINDINGS: Bones: There are 5 lumbar-type vertebral bodies. The lowest intervertebral disk space is designated as L5-S1. The vertebral body heights are well-maintained without evidence to suggest an acute compression fracture. The bone mineralization is within normal limits. Questionable early facet arthrosis of the lower lumbar spine may be present. Intervertebral disc heights are relatively well-maintained. There is a questionable unilateral left L5 pars defect on the frontal view. No spondylolisthesis is evident. Soft tissues: Moderate amount of stool is seen throughout the imaged portions of the colon. Otherwise, the soft tissues of the imaged abdomen and pelvis are within normal limits. IMPRESSION: 1. No acute fracture of the lumbar spine. 2. Probable early degenerative changes of the lumbar spine. There is a questionable left L5 pars defect. Dictated by: Joss Lewis M.D. on 06/05/2019 at 7:07 Approved by: Joss Lewis M.D. on 06/05/2019 at 7:09 Discharge Plan Departure Patient Disposition: Home Clinical Impression: Back pain Qualifiers: Back pain location: low back pain Chronicity: acute Back pain laterality: bilateral Sciatica presence: without sciatica Qualified Code(s): M54.5 - Low back pain Discharge Date/Time: 06/04/19 23:45 Instructions: DI for Low Back Pain, DI for Back Spasm Activity Restrictions/Additional Instructions: *You have been diagnosed with [acute lumbar pain] *What to do: *Take medications as directed: [facility] [place] at your request *Follow up with your primary care provider in 2-3 days, call for an appointment. Let them know you were seen in the Emergency Department and that we ask that you be seen in follow up *Return to ER if you should have any new, worsening or concerning symptoms Prescriptions: New ketorolac 10 mg tablet 10 mg PO Q6H PRN (Reason: pain) Qty: 14 RF: 0 lidocaine [Lidoderm] 5 % adhesive patch,medicated 1 patch TOP DAILY Qty: 30 RF: 0 No Action labetalol 100 mg tablet 100 mg PO BID Qty: 60 RF: 1 venlafaxine [Effexor XR] 75 mg capsule,extended release 24hr 75 mg PO DAILY Qty: 90 RF: 1 venlafaxine [Effexor XR] 150 mg capsule,extended release 24hr 150 mg PO DAILY Qty: 90 RF: 0 nystatin 100,000 unit/gram cream 1 applictn TOP .COMPLEX Qty: 30 RF: 0 norethindrone (contraceptive) 0.35 mg tablet 0.35 mg PO DAILY Qty: 28 RF: 5 fluticasone propion-salmeterol 500-50 mcg/dose blister with device 2 puff Inhalation BID RF: 0 albuterol sulfate 90 mcg/actuation HFA aerosol inhaler 1 - 2 puff Inhalation PRN PRN (Reason: Shortness Of Breath) RF: 0 ibuprofen 600 mg Tablet 600 mg PO Q6HR PRN (Reason: Pain, Mild (1-3)) Qty: 30 RF: 0 (DME) breast pump device See Dose Instructions .ROUTE .MEDSUPPLY Qty: 1 RF: 0 ferrous gluconate 324 mg (38 mg iron) tablet 324 mg PO BID Qty: 60 RF: 0
[2019-06-04 23:19] VITALS: BP 120/70; PULSE 76; RESP 15; O2SAT 100
== END 2019-06-04 23:45 | disposition home or self-care (01) ==
PROVIDERS: Emergency Provider Emergency Medicine
DX: M54.5 Low back pain (principal); W19.XXXA Unspecified fall, initial encounter
CPT/HCPCS: 72100; 73521; 99282; 99283

== ENCOUNTER 2019-08-06 04:32 | Emergency (ER) | payer OTHER, SELFPAY ==
[2019-08-06 04:41] VITALS: BP 157/103; PULSE 83; RESP 19; TEMP 36.2; O2SAT 96; BMI 45.1
--- NOTE | 2019-08-06 04:42 | DI.RAD.S_ITS ---
PROCEDURE: XR LUMBAR SPINE 1V INDICATIONS: fall with lumbar pain TECHNIQUE: 1 views of the lumbar spine was acquired. COMPARISON: [facility], CR, XR LUMBAR SPINE 2-3V, 06/04/2019, 22:52. FINDINGS: There are motion artifact. Bones: 5 [id number] vertebrae are present. There is normal bony alignment. No vertebral body compression fractures. No suspicious bony lesions. There is disc space narrowing at L3-L4, L4-L5 and L5-S1. Soft tissues: Overlying bowel gas pattern is normal. No suspicious soft tissue calcifications. IMPRESSION: Motion artifacts. There is disc space narrowing at L3-L4, L4-L5 and L5-S1. No definitive fractures. Dictated by: Makayla Javed M.D. on 08/06/2019 at 9:48 Approved by: Makayla Javed M.D. on 08/06/2019 at 9:50
--- NOTE | 2019-08-06 04:43 | ED_ITS ---
HPI - Back Pain/Injury General Chief Complaint: Back Pain/Injury Stated Complaint: Fell down stairs/Back Pain Time Seen by Provider: 08/06/19 04:42 Source: patient and family Mode of arrival: Ambulatory Limitations: no limitations History of Present Illness HPI Narrative: 23-year-old female nonsmoker with asthma presents with her and infant child with the chief complaint of slipping the stairs her motor home and landing on her tailbone. She has pain that worsens with motion and improves with rest. She denies any numbness, tingling or weakness. She denies any head neck or extremity pain. She denies any trouble controlling bowel or bladder. She states that she took Tylenol, Motrin and using a lidocaine patch without much in the way of relief. Her fall was yesterday at 2:00 p.m.. She was doing pretty well over the course of the day woke up tonight with increased spasming and pain MD Complaint: back pain and back injury Onset (ago): hour(s) Duration: progressively worsening Similar Symptoms Previously: Yes Location: lumbar spine Severity: moderate Quality: sharp Radiation: none Relieving factors: none Exacerbating factors: movement Context: fall Treatments prior to arrival: NSAIDS and acetaminophen Related Data Home Medications Medication Instructions Recorded Confirmed albuterol sulfate 1 - 2 puff INHALATION PRN PRN 12/30/18 02/04/19 fluticasone propion-salmeterol 2 puff INHALATION BID 12/30/18 02/04/19 Previous Rx's Medication Instructions Recorded breast pump #1 each 01/03/19 ferrous gluconate 324 mg PO BID #60 tab 01/03/19 ibuprofen 600 mg PO Q6HR PRN #30 tab 01/03/19 labetalol 100 mg tablet 100 mg PO BID #60 tab 01/19/19 venlafaxine 75 mg capsule,extended 75 mg PO DAILY #90 cap 01/20/19 release 24 hr norethindrone (contraceptive) 0.35 0.35 mg PO DAILY #28 tab 02/04/19 mg tablet nystatin 100,000 unit/gram topical 1 applictn TOP .COMPLEX #30 gram 02/04/19 cream venlafaxine 150 mg 150 mg PO DAILY #90 cap 02/19/19 capsule,extended release 24 hr ketorolac 10 mg PO Q6H PRN #14 tab 06/04/19 lidocaine [Lidoderm] 1 patch TOP DAILY #30 each 06/04/19 hydrocodone-acetaminophen 1 tab PO Q4-6H PRN #10 tab 08/06/19 Allergies Allergy/AdvReac Type Severity Reaction Status Date / Time No Known Drug Allergies Allergy Verified 02/04/19 09:29 Review of Systems Constitutional Constitutional: Denies chills, Denies fatigue, Denies fever(s), Denies frequent falls, Denies lethargy and Denies weakness Eyes Eyes: Denies change in vision, Denies eye discharge, Denies irritation and Denies loss of vision ENT Ears, Nose, Mouth, and Throat: Denies change in voice, Denies dizziness, Denies neck pain, Denies sore throat and Denies throat swelling Cardiovascular Cardiovascular: Denies chest pain, Denies irregular heart rhythm, Denies lightheadedness, Denies palpitations, Denies dyspnea, Denies dyspnea on exertion and Denies orthopnea Respiratory Respiratory: Denies cough, Denies dyspnea, Denies dyspnea on exertion and Denies wheezing Gastrointestinal Gastrointestinal: Denies abdominal pain, Denies change in bowel habits, Denies diarrhea, Denies nausea and Denies vomiting Genitourinary Genitourinary: Denies hematuria, Denies flank pain, Denies urinary incontinence and Denies urinary urgency Musculoskeletal Musculoskeletal: Reports back pain, Denies muscle weakness, Denies neck pain, Denies numbness and Denies tingling Integumentary/Breasts Skin/Breast: Denies pruritus, Denies erythema, Denies rash and Denies wounds Neurologic Neurologic: Denies behavioral changes, Denies confusion, Denies dizziness, Denies frequent falls, Denies loss of vision, Denies numbness, Denies tingling and Denies weakness Psychiatric Psychiatric: Denies anxiety, Denies behavioral changes, Denies confusion, Denies depression, Denies homicidal ideation and Denies suicidal ideation Endocrine Endocrine: Denies fatigue, Denies flushing and Denies palpitations Hematologic/Lymphatic Hematologic/Lymphatic: Denies easy bruising Allergic/Immunologic Allergic/Immunologic: Denies urticaria, Denies throat swelling and Denies wheezing Patient History Medical History Asthma (Acute) Surgical History No pertinent past surgical history (Acute) Social History Smoking Status: Never smoker alcohol intake frequency: 0-2 drinks per day Substance Use Type: does not use Exam Narrative Exam Narrative: GENERAL: [23] year old patient appears stated age. Well- nourished, well-developed patient, in mild distress. Obviously in pain, ask for some help getting out of the wheelchair HEAD: Atraumatic. Normocephalic. EYES: Pupils equal round and reactive. Extraocular motions intact. No scleral icterus. No injection or drainage. ENT: Nose without bleeding, purulent drainage. Throat without erythema, tonsillar hypertrophy or exudate. Airway patent. NECK: Trachea midline. Non tender CARDIOVASCULAR: Regular rate and rhythm without murmurs, gallops, or rubs. RESPIRATORY: Clear to auscultation. Breath sounds equal bilaterally. No wheezes, rales, or rhonchi. GASTROINTESTINAL: Abdomen soft, non-tender, nondistended. EXTREMITIES: No edema or joint tenderness. BACK: Mild midline tenderness, lidocaine patch present. No saddle anesthesia. Bilateral lower extremities have 5/5 strength and intact patellar reflexes. NEURO: AOx3. SKIN: No rash or erythema of visible areas Initial Vital Signs Initial Vital Signs: Vital Signs Temperature 97.1 F L 08/06/19 04:41 Pulse Rate 83 08/06/19 04:41 Respiratory Rate 19 08/06/19 04:41 Blood Pressure 157/103 H 08/06/19 04:41 Pulse Oximetry 96 08/06/19 04:41 Course Orders Ordered: Discontinued Medications Hydrocodone Bitart/Acetaminophen (Vicodin Prepack) 1 bottle [facility] [place] [facility] Stop: 08/06/19 05:31 Last Admin: 08/06/19 05:37 Dose: 1 bottle Documented by: MAXI Vital Signs Vital signs: Vital Signs - 8 hr 08/06/19 04:41 Temperature 97.1 F L Pulse Rate 83 Respiratory Rate 19 Blood Pressure 157/103 H Pulse Oximetry 96 MDM - Back Pain/Injury Imaging Data Lumbar CT: Radiologist's impression: Disc protrusions at L3-L4, L4-L5, and L5-S1 Discharge Plan Departure Patient Disposition: Home Clinical Impression: Bulging lumbar disc Discharge Date/Time: 08/06/19 05:33 Instructions: DI for Low Back Pain Activity Restrictions/Additional Instructions: You have been prescribed narcotic medications. While on these medications you cannot drive or operate heavy machinery. Additionally you cannot sign legal documents or perform any duties such as this. 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 Please understand that we cannot provide further refills of narcotics or controlled substances through the ED and your pain management will need to be through your Primary Care Provider NO WHILE TAKING THIS MEDICATION. You need to wait 24 hours after your last pill before breast feeding again Prescriptions: New hydrocodone-acetaminophen 5-325 mg tablet 1 tab PO Q4-6H PRN (Reason: pain) Qty: 10 RF: 0 No Action labetalol 100 mg tablet 100 mg PO BID Qty: 60 RF: 1 venlafaxine [Effexor XR] 75 mg capsule,extended release 24hr 75 mg PO DAILY Qty: 90 RF: 1 venlafaxine [Effexor XR] 150 mg capsule,extended release 24hr 150 mg PO DAILY Qty: 90 RF: 0 nystatin 100,000 unit/gram cream 1 applictn TOP .COMPLEX Qty: 30 RF: 0 norethindrone (contraceptive) 0.35 mg tablet 0.35 mg PO DAILY Qty: 28 RF: 5 ketorolac 10 mg tablet 10 mg PO Q6H PRN (Reason: pain) Qty: 14 RF: 0 lidocaine [Lidoderm] 5 % adhesive patch,medicated 1 patch TOP DAILY Qty: 30 RF: 0 fluticasone propion-salmeterol 500-50 mcg/dose blister with device 2 puff Inhalation BID RF: 0 albuterol sulfate 90 mcg/actuation HFA aerosol inhaler 1 - 2 puff Inhalation PRN PRN (Reason: Shortness Of Breath) RF: 0 ibuprofen 600 mg Tablet 600 mg PO Q6HR PRN (Reason: Pain, Mild (1-3)) Qty: 30 RF: 0 (DME) breast pump device See Dose Instructions .ROUTE .MEDSUPPLY Qty: 1 RF: 0 ferrous gluconate 324 mg (38 mg iron) tablet 324 mg PO BID Qty: 60 RF: 0 Referrals: Tanner Dennison MD [Physician] -
--- NOTE | 2019-08-06 04:53 | DI.CT.S_ITS ---
PROCEDURE: CT LUMBAR SPINE WO CON INDICATIONS: fall with severe back pain TECHNIQUE: Noncontrast 3 mm thick sections acquired from the T12 level to the sacrum. Sagittal and coronal reformats were constructed. For radiation dose reduction, the following was used: automated exposure control. COMPARISON: [facility], CR, XR LUMBAR SPINE 2-3V, 06/04/2019, 22:52. [facility], CR, XR LUMBAR SPINE 2-3V, 08/06/2019, 4:41. FINDINGS: Image quality: Excellent. Bones: There is normal bony alignment. No acute vertebral body compression fractures. No suspicious lytic or blastic bony lesions. Central spinal caliber is of normal overall caliber. No pars defects. There is posterior disc bulge at L3-L4, L4-L5 and L5-S1. There is no central canal stenosis at L4-L5. Soft tissues: No retroperitoneal masses or hematomas. Visualized aorta is normal in caliber. IMPRESSION: 1. No fractures. 2. Posterior disc bulge at L3-L4, L4-L5 and L5-S1 consistent with early disc degeneration. If radiculopathy symptoms are present, MRI is suggested for further evaluation. No significant discrepancy with the material handler 1st shift radiology preliminary report. Dictated by: Makayla Javed M.D. on 08/06/2019 at 7:59 Approved by: Makayla Javed M.D. on 08/06/2019 at 8:03
[2019-08-06] MEDS: HYDROCODONE/ACET 5/325 PREPACK 1 BOTTLE MISC (05:37)
== END 2019-08-06 05:33 | disposition home or self-care (01) ==
PROVIDERS: Emergency Provider Emergency Medicine
DX: M51.26 Other intervertebral disc displacement, lumbar region (principal); W10.9XXA Fall (on) (from) unspecified stairs and steps, initial encounter
CPT/HCPCS: 72020; 72131; 99282; 99284

== ENCOUNTER 2020-09-20 15:04 | Emergency (ER) | payer OTHER, SELFPAY ==
[2020-09-20 15:10] VITALS: BP 151/69; PULSE 67; RESP 22; TEMP 35.6; O2SAT 97
--- NOTE | 2020-09-20 15:23 | DI.RAD.S_ITS ---
PROCEDURE: XR CHEST 1V INDICATIONS: Flu like symptoms TECHNIQUE: One view of the chest was acquired. COMPARISON: None. FINDINGS: Surgical changes and devices: None. Lungs and pleura: Lungs are clear. No pleural effusions or pneumothorax. Mediastinum: Mediastinal contours appear normal. Heart size is normal. Bones and chest wall: No suspicious bony lesions. Overlying soft tissues appear unremarkable. IMPRESSION: No acute disease. Dictated by: Maximino Gallardo M.D. on 09/20/2020 at 16:06 Approved by: Maximino Gallardo M.D. on 09/20/2020 at 16:20
[2020-09-20 15:36] LABS: COVID19 -Nasal RAPID Negative (Negative)
[2020-09-20 16:04] VITALS: PULSE 85; RESP 20; O2SAT 96
[2020-09-20] MEDS: ALBUTEROL/IPRATROPIUM 3 ML AMPUL INH (16:04)
--- NOTE | 2020-09-20 16:06 | ED_ITS ---
HPI - SOB/Dyspnea General Chief Complaint: Shortness of Breath/Dyspnea Stated Complaint: trouble breathing, has asthma Time Seen by Provider: 09/20/20 15:48 Source: patient Mode of arrival: Ambulatory Limitations: no limitations History of Present Illness HPI Narrative: This is a 24-year-old female comes with complaint of chest pain, shortness of breath and wheezing. Patient states she has had some nasal congestion, she has been coughing up yellow clearish sputum. She states all of the family members in her house all have similar symptoms. She denies fevers or chills. She denies any hemoptysis. She denies any abdominal pain. No nausea, no vomiting no other GI or urinary symptoms. Denies any swelling in her extremities. Patient states she has a history of asthma, she has had multiple episodes requiring treatment. She has never required hospitalization. She has been using her albuterol every 2-3 hours along with her Flovent regularly. She has not been on any steroids recently. She is and is breast-feeding. She denies any other surgical history. No other medical history. No allergies to medications. No tobacco, occasional alcohol, no illicit. Her primary care is through the [facility]. Related Data Home Medications Medication Instructions Recorded Confirmed albuterol sulfate 1 - 2 puff INHALATION PRN PRN 12/30/18 02/04/19 fluticasone propion-salmeterol 2 puff INHALATION BID 12/30/18 02/04/19 Previous Rx's Medication Instructions Recorded breast pump #1 each 01/03/19 ferrous gluconate 324 mg PO BID #60 tab 01/03/19 ibuprofen 600 mg PO Q6HR PRN #30 tab 01/03/19 labetalol 100 mg tablet 100 mg PO BID #60 tab 01/19/19 venlafaxine 75 mg capsule,extended 75 mg PO DAILY #90 cap 01/20/19 release 24 hr norethindrone (contraceptive) 0.35 0.35 mg PO DAILY #28 tab 02/04/19 mg tablet nystatin 100,000 unit/gram topical 1 applictn TOP .COMPLEX #30 gram 02/04/19 cream venlafaxine 150 mg 150 mg PO DAILY #90 cap 02/19/19 capsule,extended release 24 hr ketorolac 10 mg PO Q6H PRN #14 tab 09/06/19 lidocaine [Lidoderm] 1 patch TOP DAILY #30 each 06/04/19 hydrocodone-acetaminophen 1 tab PO Q4-6H PRN #10 tab 08/06/19 albuterol sulfate 2 inh INHALATION Q4H PRN #1 ea 09/20/20 prednisone 50 mg PO DAILY #5 tab 09/20/20 Allergies Allergy/AdvReac Type Severity Reaction Status Date / Time No Known Drug Allergies Allergy Verified 09/20/20 15:20 Review of Systems Review of Systems ROS Unobtainable: All systems reviewed & are unremarkable except as noted in HPI and below Patient History Medical History (Updated 09/20/20 @ 16:10 by Ella Carnes DO) Asthma Surgical History No pertinent past surgical history Social History Smoking Status: Never smoker Smoking Status: Never smoker alcohol intake frequency: 0-2 drinks per day Substance Use Type: does not use Exam Narrative Exam Narrative: GEN: well nourished, well appearing female, alert and oriented x 3, patient appears to be in mild distress. HEENT: Atraumatic, pupils are equal round reactive to light, extraocular movements are intact. HEART: Regular rate and rhythm without murmur, clicks, rubs. LUNGS:Lungs slightly decreased bilaterally, very mild expiratory wheezes bilaterally, no rales, crackles, chest moves symmetrically, tachypnea, no accessory muscle use speaks in full sentences. ABD:bowel sounds normal, soft, non-tender, no guarding, rebound, rigidity, no masses noted, no hepatosplenomegaly MSCL: Non-tender, normal gait NEURO:CN 2-12 intact, sensation normal Initial Vital Signs Initial Vital Signs: Vital Signs Temperature 96.1 F L 09/20/20 15:10 Pulse Rate 67 09/20/20 15:10 Respiratory Rate 22 09/20/20 15:10 Blood Pressure 151/69 H 09/20/20 15:10 Pulse Oximetry 97 09/20/20 15:10 Course Orders Ordered: ED Orders 09/20/20 15:15 COVID19 Stat 09/20/20 15:23 XR chest 1V Stat 09/20/20 15:46 RT Consult Eval and Treat NOW Discontinued Medications Albuterol/Ipratropium (Albuterol/Ipratropium 3 Ml Ampul) 3 ml INH NOW ONE Stop: 09/20/20 16:03 Last Admin: 09/20/20 16:04 Dose: 3 ml Documented by: DUONG Prednisone (Prednisone 20 Mg Tablet) 60 mg PO NOW ONE Stop: 09/20/20 16:07 Last Admin: 09/20/20 16:35 Dose: 60 mg Documented by: QASIM Reevaluation(s) Reevaluation #1: mild wheeze on exam but improved and feels comfortable returning home. HR improved also. Time: 16:57 Vital Signs Vital signs: Vital Signs - 8 hr 09/20/20 15:10 09/20/20 16:04 09/20/20 16:18 Temperature 96.1 F L Pulse Rate 67 85 101 H Respiratory Rate 22 20 17 Blood Pressure 151/69 H Pulse Oximetry 97 96 97 09/20/20 16:30 09/20/20 16:31 Temperature Pulse Rate 95 H 98 H Respiratory Rate 15 21 Blood Pressure 131/78 Pulse Oximetry 98 98 MDM - SOB/Dyspnea Lab Data Labs: Lab Results 09/20/20 Range/Units 15:15 COVID-19 PCR Negative (Negative) Imaging Data Chest x-ray: Radiologist's Impression: [address] [id number] ReportSigned Patient: [facility]#: [id number]: 1995Acct:[id number]/Sex: 24 / FDate of Service: 09/20/20Loc: EDAccession Number: [id number] Procedure: XR chest 1V Ordering Provider: Ella Carnes D.O. PROCEDURE: XR CHEST 1V INDICATIONS: Flu like symptoms TECHNIQUE: One view of the chest was acquired. COMPARISON: None. FINDINGS: Surgical changes and devices: None. Lungs and pleura: Lungs are clear. No pleural effusions or pneumothorax. Mediastinum: Mediastinal contours appear normal. Heart size is normal. Bones and chest wall: No suspicious bony lesions. Overlying soft tissues appear unremarkable. IMPRESSION: No acute disease. Dictated by: Maximino Gallardo M.D. on 09/20/2020 at 16:06 Approved by: Maximino Gallardo M.D. on 09/20/2020 at 16:20 Discharge Plan Departure Patient Disposition: Home Clinical Impression: Asthma exacerbation Instructions: Asthma -- Adult Activity Restrictions/Additional Instructions: Follow up with your physician in the next week if you are not continuing to improve in her symptoms. Continue your albuterol if needed 1-2 puffs every 4 hours as needed for wheezing. Take steroids once daily until gone. Prescription to [facility]. You may breastfeed with these medications. Return to the ER for fevers, worsening chest pain, pressure, shortness of breath, increasing wheezing or difficulty moving air lightheadedness, passing out, persistent vomiting, swelling of your extremities or other new or concerning symptoms. Prescriptions: New albuterol sulfate 90 mcg/actuation aerosol powdr breath activated 2 inh inhalation Q4H PRN (Reason: shortness of breath or wheezing) Qty: 1 RF: 0 prednisone 50 mg tablet 50 mg PO DAILY Qty: 5 RF: 0 No Action labetalol 100 mg tablet 100 mg PO BID Qty: 60 RF: 1 venlafaxine [Effexor XR] 75 mg capsule,extended release 24hr 75 mg PO DAILY Qty: 90 RF: 1 venlafaxine [Effexor XR] 150 mg capsule,extended release 24hr 150 mg PO DAILY Qty: 90 RF: 0 nystatin 100,000 unit/gram cream 1 applictn TOP .COMPLEX Qty: 30 RF: 0 norethindrone (contraceptive) 0.35 mg tablet 0.35 mg PO DAILY Qty: 28 RF: 5 ketorolac 10 mg tablet 10 mg PO Q6H PRN (Reason: pain) Qty: 14 RF: 0 lidocaine [Lidoderm] 5 % adhesive patch,medicated 1 patch TOP DAILY Qty: 30 RF: 0 fluticasone propion-salmeterol 500-50 mcg/dose blister with device 2 puff Inhalation BID RF: 0 albuterol sulfate 90 mcg/actuation HFA aerosol inhaler 1 - 2 puff Inhalation PRN PRN (Reason: Shortness Of Breath) RF: 0 ibuprofen 600 mg Tablet 600 mg PO Q6HR PRN (Reason: Pain, Mild (1-3)) Qty: 30 RF: 0 (DME) breast pump device See Dose Instructions .ROUTE .MEDSUPPLY Qty: 1 RF: 0 ferrous gluconate 324 mg (38 mg iron) tablet 324 mg PO BID Qty: 60 RF: 0 hydrocodone-acetaminophen 5-325 mg tablet 1 tab PO Q4-6H PRN (Reason: pain) Qty: 10 RF: 0
--- NOTE | 2020-09-20 16:13 | RT ---
TOOK OVER NEB TX ADMIN FROM OTHER RT. VALUES POSTED ARE POST TX.
[2020-09-20 16:18] VITALS: PULSE 101; RESP 17; O2SAT 97
[2020-09-20 16:30] VITALS: PULSE 95; RESP 15; O2SAT 98
[2020-09-20 16:31] VITALS: BP 131/78; PULSE 98; RESP 21; O2SAT 98
[2020-09-20] MEDS: predniSONE 20 MG TABLET 60 MG PO (16:35)
== END 2020-09-20 17:06 | disposition home or self-care (01) ==
PROVIDERS: Emergency Provider Emergency Medicine
DX: J45.901 Unspecified asthma with (acute) exacerbation (principal); R06.02 Shortness of breath; R05 Cough; R07.9 Chest pain, unspecified; Z20.828 Contact with and (suspected) exposure to other viral communicable diseases
CPT/HCPCS: 71045; 87635; 94150; 94640; 99281; 99283

== ENCOUNTER → 2021-04-27 10:59 | Outpatient (CLI) | payer OTHER, SELFPAY ==
[2021-04-27 12:12] LABS: Add Manual Diff / Slide Review NO; Basophils Absolute Auto 100 /uL (0-100); Basophils Percent Auto 0.6 % (0-2); Eosinophils Absolute Auto 600 /uL (0-450); Eosinophils Percent Auto 8.2 % (2-4); Hematocrit 41.5 % (36-46); Hemoglobin 13.5 g/dL (12.0-16.0); Lymphocytes Absolute Auto 2600 /uL (1100-4500); Lymphocytes Percent Auto 32.7 % (25-40); Mean Corpuscular HGB Conc 32.6 % (30-36); Mean Corpuscular Hemoglobin 27.3 PG (26-34); Mean Corpuscular Volume 83.9 fL (80-100); Monocytes Absolute Auto 600 /uL (0-900); Monocytes Percent Auto 7.5 % (3-14); Neutrophils Absolute Auto 4000 /uL (1500-7000); Platelet Count 421 X10^3/uL (150-400); Red Blood Cell Count 4.95 X10^6/uL (4.0-5.2); Red Cell Distribution Width 13.1 % (11.6-14.8); White Blood Cell Count 7.9 X10^3/uL (4.5-11.0)
[2021-04-27 12:30] LABS: Alanine Aminotransferase 27 IU/L (<35); Albumin 4.5 g/dL (3.5-5.0); Albumin Globulin Ratio 1.5 (1.0-2.8); Alkaline Phosphatase 77 U/L (38-126); Aspartate Aminotransferase 37 IU/L (14-36); Bilirubin Total 0.4 mg/dL (0.2-1.3); Blood Urea Nitrogen 12 mg/dL (7-17); Calcium 9.3 mg/dL (8.4-10.2); Carbon Dioxide 21 mmol/L (22-32); Chloride 108 mmol/L (98-107); Cholesterol 173 mg/dL (140-199); Estimated Glomerular Filt Rate > 60.0 mL/min (>60); Globulin 3.1 g/dL (1.7-4.1); Glucose 102 mg/dL (70-100); HDL Cholesterol 50 mg/dL (40-60); HEMOLYSIS < 15 (0-50); LDL Cholesterol Calculated 101 mg/dL (<100); Potassium 3.9 mmol/L (3.4-5.1); Sodium 139 mmol/L (137-145); Total Protein 7.6 g/dL (6.3-8.2); Triglycerides 112 mg/dL (35-150)
[2021-04-27 13:00] LABS: TSH w/ Reflex to FT4 0.84 uIU/mL (0.47-4.68)
[2021-04-27 14:30] LABS: Hemoglobin A1C% w Est Avg Glu 5.1 % (4.0-6.0)
== END ==
PROVIDERS: PCP Family Medicine; Referring Provider Family Medicine; Visit Provider Family Medicine
DX: F32.9 Major depressive disorder, single episode, unspecified (principal); F41.9 Anxiety disorder, unspecified; I10 Essential (primary) hypertension; J45.40 Moderate persistent asthma, uncomplicated
CPT/HCPCS: 36415; 80053; 80061; 83036; 84443; 85025

== ENCOUNTER → 2021-05-09 11:55 | Outpatient (CLI) | payer OTHER, SELFPAY ==
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
[2021-05-09 12:14] VITALS: BMI 48.7
== END ==
PROVIDERS: PCP Family Medicine; Referring Provider Family Medicine; Visit Provider Family Medicine
DX: E66.9 Obesity, unspecified (principal); Z68.42 Body mass index [BMI] 45.0-49.9, adult; Z71.3 Dietary counseling and surveillance
CPT/HCPCS: 97802

== ENCOUNTER → 2021-05-23 10:46 | Outpatient (CLI) | payer OTHER, SELFPAY ==
--- NOTE | 2021-05-23 10:48 | DI.US.S_ITS ---
PROCEDURE: US PELVIC COMPLETE INDICATIONS: DYSMENORRHEA TECHNIQUE: Real-time scanning was performed of the pelvic organs, with image documentation. Additional endovaginal scanning was necessary due to incomplete visualization of the adnexal and endometrial structures by transabdominal scanning. COMPARISON: None. FINDINGS: Uterus: Uterus is anteverted and normal in size at 3.5 x 4.8 x 7.7 cm. The endometrium measures 6.9 mm in combined thickness. A small amount of hypoechoic fluid is seen within the endometrial canal, a nonspecific finding. No uterine fibroids. Ovaries: Right ovary measures 4.3 x 2.1 x 2.7 cm with a complex 1.6 cm right ovarian cyst. This contains low level internal echoes. No solid mass lesion is found. Other: No pathologic free abdominal or pelvic fluid. IMPRESSION: No evidence of polycystic ovarian syndrome. Small 1.6 cm mildly complex right ovarian cyst. Nonspecific appearance of the uterus. No uterine fibroids found. If clinically desired a follow-up pelvic ultrasound could be obtained in 6-8 weeks to confirm resolution of the mildly complex right ovarian cyst. Dictated by: Skyler Baltazar M.D. on 05/23/2021 at 15:57 Approved by: Skyler Baltazar M.D. on 05/23/2021 at 16:00
[2021-05-23 12:13] LABS: Alanine Aminotransferase 23 IU/L (<35); Albumin 4.5 g/dL (3.5-5.0); Albumin Globulin Ratio 1.6 (1.0-2.8); Alkaline Phosphatase 77 U/L (38-126); Aspartate Aminotransferase 31 IU/L (14-36); BUN Creatinine Ratio 21.1 (6-22); Bilirubin Total 0.3 mg/dL (0.2-1.3); Blood Urea Nitrogen 16 mg/dL (7-17); Calcium 9.8 mg/dL (8.4-10.2); Carbon Dioxide 22 mmol/L (22-32); Chloride 107 mmol/L (98-107); Estimated Glomerular Filt Rate > 60.0 mL/min (>60); Globulin 2.9 g/dL (1.7-4.1); Glucose 69 mg/dL (70-100); HEMOLYSIS < 15 (0-50); Potassium 4.2 mmol/L (3.4-5.1); Sodium 139 mmol/L (137-145); Total Protein 7.4 g/dL (6.3-8.2)
== END ==
PROVIDERS: PCP Family Medicine; Referring Provider Family Medicine; Visit Provider Family Medicine
DX: N94.6 Dysmenorrhea, unspecified (principal); L68.0 Hirsutism; R25.2 Cramp and spasm; N83.291 Other ovarian cyst, right side
CPT/HCPCS: 36415; 76830; 76856; 80053; 83735

== ENCOUNTER → 2021-05-23 10:48 | Outpatient (CLI) | payer OTHER, SELFPAY ==
--- NOTE | 2021-05-23 11:59 | DIET.CONS ---
Dietary Consultation Note RD f/u for 25y F for help with weight loss and establishing healthy eating habits. Pt continues to walk 5mi daily, having some issues with calf cramping when she pushes herself. getting labs today to assess for electrolyte disturbances, pt also being worked up for PCOS, had pelvic ultrasound today. Pt has been doing meal prepping and planning using [employer] Pt continues to log her PO intake using [employer] and assesses each day for macros and micronutrients. Pt noticed she is high in sodium most days. Pt has questions about portion sizes. Pt purchased salmon patties from [employer] and enjoys them, served with cauliflower rice and broccoli. Interventions: 1. Discussed Hunger Scale. Pt has hx of poor food role models and shaming because of her weight. Discussed eating at 3 and stopping at 8. Discussed eating at 5 and strategies to not use food as coping mechanism when she is bored, tired, anxious. 2. Discussed appropriate sodium intake of 2300mg. Pt often 3-4k mg secondary to high intake ultraprocessed foods. Pt purchases preformed hamburger patties, neha tomato sauce, and other convenience foods which contain high sodium levels. Discussed reading food labels to find low sodium options, making hamburgers from fresh meat. 3. Discussed fueling workouts with her [employer] packets and adding Natural Calm magnesium drink mix to support muscle cramps. 4. Discussed importance of weight training for improving body composition. Pt will start yoga/pilates videos until she starts at gym in June, then will do mix of cardio and group classes. RD f/u in 4 weeks. (19/26 units remaining)
== END ==
PROVIDERS: PCP Family Medicine; Referring Provider Family Medicine; Visit Provider Family Medicine
DX: E28.2 Polycystic ovarian syndrome (principal); Z71.3 Dietary counseling and surveillance
CPT/HCPCS: 97803

== ENCOUNTER → 2021-12-18 08:36 | Outpatient (CLI) | payer OTHER, SELFPAY ==
[2021-12-18 13:15] LABS: Glucose 119 mg/dL (70-100)
[2021-12-18 13:16] LABS: Glucose 81 mg/dL (70-100)
[2021-12-18 17:35] LABS: Free T4, Direct Thyroxine 0.87 ng/dL (0.78-2.19)
[2021-12-18 17:51] LABS: Testosterone 33.5 ng/dL (5.71-77.0)
== END ==
PROVIDERS: PCP Family Medicine; Referring Provider Specialist; Visit Provider Specialist
DX: N92.6 Irregular menstruation, unspecified (principal); N94.6 Dysmenorrhea, unspecified; E28.2 Polycystic ovarian syndrome
CPT/HCPCS: 36415; 82947; 83525; 84403; 84439; 84443

== ENCOUNTER → 2021-12-18 09:58 | Outpatient (CLI) | payer OTHER, SELFPAY ==
--- NOTE | 2021-12-18 10:08 | DIET.PN1 ---
Dietary Progress Note 26y F [address] f/u for help with healthy eating, obesity, and PCOS. Pt in middle of her 3h GTT testing for PCOS vs endometriosis. 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 Pt would like to focus visit on strategies for meal planning using healthy whole foods rather than processed foods. Pt struggles with healthy snacking and eating dipmle with long lecture days at school. Pt snider been trying rice cakes, popcorn, carrots. Pt notices she eats when bored and sleepy. She was tracking her PO intake but felt this was detrimental to her mental health so has stopped. Pt currently gets 6hr sleep, desires 8, uses evening time to watch Netflix and have alone time to decompress, often up too late watching TV and may snack. Pt feels new morning breakfast routine is beneficial and filling: potatoes, turkey sausage, eggs, veggies (spinach, mushrooms). Likes: protein foods: eggs, turkey sausage, chicken, hamburgers, tilapia, shrimp, almonds and other nuts, carb foods: oatmeal, raisin bran cereal, pasta vegetables: likes all but brussels sprouts, plain peas fruits: likes all but overripe bananas Interventions: 1. Encouraged pt to continue physical activity to manage mental stress, to condition the body, and support metabolic rate. Introduced pt to [employer] for free videos made by women with curvy bodies. 2. Discussed strategies for meal planning including choosing a style of food to follow each day of the week to give it some structure such as: grill friday, taco friday, stir guerrero friday, pasta , pizza friday... Pt received meal plan templates to practice this skill and deciding on a schedule that works for her family. Pt will call to schedule telehealth f/u when she gets new school schedule. Electronically Signed by: Makayla Barraza 12/18/21 10:08 Clinical Dietitian [address] [id number]
== END ==
PROVIDERS: PCP Family Medicine; Referring Provider Family Medicine; Visit Provider Family Medicine
DX: E66.9 Obesity, unspecified (principal); E28.2 Polycystic ovarian syndrome
CPT/HCPCS: 97803

== ENCOUNTER → 2022-02-14 15:30 | Outpatient (CLI) | payer OTHER, SELFPAY ==
[2022-02-14 18:30] LABS: Appearance Urine UA CLEAR; Bilirubin Urine UA NEGATIVE (NEGATIVE); Color Urine UA YELLOW; Glucose Urine UA TRACE g/dL (Negative); Ketones Urine UA NEGATIVE (NEGATIVE); Leukocyte Esterase Urine UA 2+ (NEGATIVE); Nitrite Urine UA POSITIVE (Negative); Occult Blood Urine UA TRACE-LYSED (Negative); Protein Urine UA NEGATIVE (Negative); Specific Gravity Urine UA <=1.005 (1.000-1.035); Urobilinogen Urine UA 0.2 E.U./dL (0.2)
[2022-02-14 18:36] LABS: pH Urine UA 6.5 (4.5-8.0)
[2022-02-14 19:37] LABS: Bacteria Urine Many (>30); Culture Indicated Urine Specimen Cultured; RBC Urine 0-1/HPF (0-5/HPF); Squamous Epithelial Cell Urine 0-1 /HPF (0-5/HPF); WBC Urine 1-5/HPF (0-5/HPF)
== END ==
PROVIDERS: PCP Family Medicine; Referring Provider Family Medicine; Visit Provider Family Medicine
DX: R30.0 Dysuria (principal); R35.0 Frequency of micturition
CPT/HCPCS: 81001; 87077; 87086; 87186

== ENCOUNTER → 2022-03-11 15:33 | Outpatient (CLI) | payer OTHER, SELFPAY ==
[2022-03-11 16:19] LABS: Pregnancy Test Urine Negative (Negative)
== END ==
PROVIDERS: PCP Family Medicine; Visit Provider Nurse Practitioner Family
DX: R30.0 Dysuria (principal); N89.8 Other specified noninflammatory disorders of vagina
CPT/HCPCS: 81025; 87086; 87210

== ENCOUNTER → 2022-04-09 15:27 | Outpatient (CLI) | payer OTHER, SELFPAY ==
--- NOTE | 2022-04-09 15:32 | DIET.CONS ---
Dietary Consultation Note Assessment: 26y [address] visit through telehealth (pt in home, RD in hospital office, patient agrees to visit, using video call via [employer]). Pt started taking Metformin 500mg bid 2-3mo ago, dropped 10# almost right away. Pt interesting in yefri-inositol supplement. Pt frustrated as she is in a calorie deficit and walking daily but stuck at 15# weight loss total. Pt using website [employer] for recipes and doing meal planning. Taking Vivance for 2w now. Nutrition Diagnosis: morbid obesity r/t endocrine dysfunction aeb pt >300#, pt with PCOS, pt stuck at 15# weight loss despite metformin, vivance, calorie deficit and regular exercise. Interventions: 1. People with PCOS at higher risk for eating disorder behavior to spur weight loss. Reinforced pts commitment to regular exercise, high fiber, high protein diet. 2. Pt should be fine with yefri-inositol, recc checking with PCP to confirm. 3. Recc referral to PCOS endo specialist in [place] for specialist tx. Monitoring/Evaluations: f/u prn Electronically Signed by: Makayla Barraza 04/09/22 15:[address] [id number]
== END ==
PROVIDERS: PCP Family Medicine; Referring Provider Family Medicine; Visit Provider Family Medicine
DX: E66.01 Morbid (severe) obesity due to excess calories (principal); E34.9 Endocrine disorder, unspecified; Z71.3 Dietary counseling and surveillance
CPT/HCPCS: 97802

== ENCOUNTER 2022-07-17 15:57 | Emergency (ER) | payer OTHER, SELFPAY ==
[2022-07-17 16:14] VITALS: BP 158/98; PULSE 86; RESP 16; TEMP 35.7; O2SAT 98; BMI 45.4
[2022-07-17 17:16] VITALS: BP 137/92; PULSE 88; RESP 18; O2SAT 98
[2022-07-17 17:17] VITALS: BP 140/70; PULSE 87; RESP 19; O2SAT 97
[2022-07-17 17:19] LABS: Add Manual Diff / Slide Review NO; Basophils Absolute Auto 100 /uL (0-100); Basophils Percent Auto 0.7 % (0-2); Eosinophils Absolute Auto 800 /uL (0-450); Eosinophils Percent Auto 8.4 % (2-4); Hematocrit 39.3 % (36-46); Hemoglobin 12.9 g/dL (12.0-16.0); Lymphocytes Absolute Auto 1700 /uL (1100-4500); Lymphocytes Percent Auto 18.5 % (25-40); Mean Corpuscular HGB Conc 32.9 % (30-36); Mean Corpuscular Hemoglobin 26.7 PG (26-34); Mean Corpuscular Volume 81.1 fL (80-100); Monocytes Absolute Auto 700 /uL (0-900); Monocytes Percent Auto 7.9 % (3-14); Neutrophils Absolute Auto 5800 /uL (1500-7000); Neutrophils Percent Auto 64.5 % (50-75); Platelet Count 416 X10^3/uL (150-400); Red Blood Cell Count 4.84 X10^6/uL (4.0-5.2); White Blood Cell Count 9.1 X10^3/uL (4.5-11.0)
[2022-07-17 17:30] VITALS: PULSE 86; O2SAT 97
[2022-07-17 17:31] LABS: Bacteria Urine Many (>30); RBC Urine 1-5/HPF (0-5/HPF); Squamous Epithelial Cell Urine 5-10 /HPF (0-5/HPF); WBC Urine 5-10/HPF (0-5/HPF)
--- NOTE | 2022-07-17 17:37 | DI.US.S_ITS ---
PROCEDURE: US ABDOMEN LIMITED INDICATIONS: appendix TECHNIQUE: Real-time focused scanning was performed of the abdomen with attention to the appendix, with image documentation. COMPARISON: None. FINDINGS: Appendix visualization: Not visualized Associated findings: Nearby free fluid: None Lymphadenopathy: None Tenderness on exam: None IMPRESSION: Nonvisualization of the appendix. Dictated by: Krystal Brantley M.D. on 07/17/2022 at 18:29 Approved by: Krystal Brantley M.D. on 07/17/2022 at 18:29
--- NOTE | 2022-07-17 17:39 | ED.ABDPAIN ---
HPI - Abdominal Pain <NICK Vyas - Last Filed: 07/17/22 18:38> General Chief Complaint: Abdominal Pain Stated Complaint: Abd pain Time Seen by Provider: 07/17/22 17:15 History of Present Illness HPI narrative: This is a 26-year-old female who presents to the emergency department complaining of right lower quadrant tenderness which started yesterday and reports that her pain has progressed. States that it is sharp, denies any abdominal surgical history. States that she has a history of PCOS, endometriosis, her urine was negative in triage. Patient denies fever or chills, states that she does feel fatigued, she has not had an appetite today and has had worsening of this right lower quadrant pain. States it is painful when she ambulates and while driving in the car but especially when she bends over. She denies any dysuria, urinary frequency or urgency or abnormal vaginal discharge. Related Data Home Medications Medication Instructions Recorded Confirmed albuterol sulfate 1.25 mg/3 mL 1.25 mg inhalation QID PRN 04/11/21 03/11/22 solution for nebulization fluticasone propionate 50 1 spray intranasal DAILY 04/11/21 03/11/22 mcg/actuation nasal spray,suspension (Flonase Allergy Relief) fexofenadine 180 mg tablet 180 mg PO DAILY 05/09/21 03/11/22 (Jolanta Allergy) methylphenidate HCl 36 mg 36 mg PO DAILY 02/08/22 03/11/22 tablet,extended release 24 hr (Concerta) Previous Rx's Medication Instructions Recorded venlafaxine 150 mg 150 mg PO DAILY #90 caps 12/19/21 capsule,extended release 24 hr (Effexor XR) metformin 500 mg tablet 500 mg PO BIDWMEAL Insulin 01/22/22 resistance #180 tabs zaleplon 5 mg capsule 5 mg PO ONCE #1 cap 02/07/22 fluticasone 500 mcg-salmeterol 50 2 ea inhalation BID #60 ea 02/08/22 mcg/dose blistr powdr for inhalation norethindrone acetate 1.5 1 tab PO DAILY control #21 03/27/22 mg-ethinyl estradiol 30 mcg tablet tabs albuterol sulfate 90 mcg/actuation 1 - 2 puff inhalation Q4-6H PRN 05/22/22 aerosol inhaler Shortness Of Breath #8.5 grams cephalexin 500 mg capsule 500 mg PO QID 5 days #20 caps 07/17/22 ondansetron 4 mg disintegrating 4 mg PO Q8H PRN nausea and 07/17/22 tablet vomiting #10 tabs Allergies Allergy/AdvReac Type Severity Reaction Status Date / Time No Known Drug Allergies Allergy Verified 07/17/22 16:16 Review of Systems <NICK Vyas - Last Filed: 07/17/22 18:38> Review of Systems Narrative: Review of systems is negative for acute abnormalities unless otherwise noted in HPI Patient History <NICK Vyas - Last Filed: 07/17/22 18:38> Medical History Anxiety and depression Asthma Menstrual irregularity Muscle cramping Preeclampsia Vaginal delivery Surgical History No pertinent past surgical history Social History Smoking Status: Never smoker Smoking Status: Never smoker alcohol intake frequency: a few times a month Substance Use Type: does not use Exam <NICK Vyas - Last Filed: 07/17/22 18:38> Narrative Exam Narrative: Reviewed vitals signs and nursing notes. General: cooperative, comfortable, in no acute distress, well groomed, elevated BMI HEENT: symmetrical facial expressions, moist mucous membranes Cardiovascular: regular rate and rhythm, no peripheral edema, warm extremities Respiratory: normal effort, able to speak in complete sentences, without wheezing, stridor, or abnormal breath sounds. No retractions or tachypnea. GI: abdomen soft, mildly tender to right lower quadrant to palpation, no other tenderness, no rebound tenderness or masses, no exquisite tenderness with exam. Nondistended. MSK: moves all extremities, neurovascularly intact, no weakness, normal tone Skin: brisk capillary refill, without pallor or erythema Neuro: normal speech and cognition, A&O x3, ambulatory, clear speech Psych: mental status is grossly normal, congruent mood, normal affect, pleasant and cooperative Initial Vital Signs Initial Vital Signs: Vital Signs Temperature 96.2 F L 07/17/22 16:14 Pulse Rate 86 07/17/22 16:14 Respiratory Rate 16 07/17/22 16:14 Blood Pressure 158/98 H 07/17/22 16:14 Pulse Oximetry 98 07/17/22 16:14 Oxygen Delivery Method 07/17/22 16:14 <Felicity Babin DO - Last Filed: 07/18/22 07:39> Initial Vital Signs Initial Vital Signs: Vital Signs Temperature 96.2 F L 07/17/22 16:14 Pulse Rate 86 07/17/22 16:14 Respiratory Rate 16 07/17/22 16:14 Blood Pressure 158/98 H 07/17/22 16:14 Pulse Oximetry 98 07/17/22 16:14 Oxygen Delivery Method 07/17/22 16:14 Course <NICK Vyas - Last Filed: 07/17/22 18:38> Orders Ordered: Discontinued Medications Ceftriaxone Sodium 2,000 mg/ (Sodium Chloride) 100 mls @ 200 mls/hr IV NOW ONE Stop: 07/17/22 17:40 Last Infusion: 07/17/22 18:29 Dose: 0 mls/hr Documented By: Admin: 07/17/22 17:53 Dose: 200 mls/hr Documented By: ARELI Ketorolac Tromethamine (Ketorolac 30 Mg/Ml Vial) 15 mg IV NOW ONE Stop: 07/17/22 18:15 Last Admin: 07/17/22 18:29 Dose: 15 mg Documented By: ARELI Ondansetron HCl (Ondansetron 4 Mg/2 Ml Inj) 4 mg IV NOW ONE Stop: 07/17/22 18:15 Last Admin: 07/17/22 18:29 Dose: 4 mg Documented By: ARELI Vital Signs Vital signs: Vital Signs - 8 hr 07/17/22 16:14 07/17/22 17:16 07/17/22 17:17 Temperature 96.2 F L Pulse Rate 86 88 87 Respiratory Rate 16 18 19 Blood Pressure 158/98 H 137/92 H 140/70 Pulse Oximetry 98 98 97 Oxygen Delivery Method Room Air 07/17/22 17:30 07/17/22 18:00 Temperature Pulse Rate 86 86 Respiratory Rate 20 Blood Pressure 130/90 Pulse Oximetry 97 98 Oxygen Delivery Method <Felicity Babin DO - Last Filed: 07/18/22 07:39> Orders Ordered: Discontinued Medications Ceftriaxone Sodium 2,000 mg/ (Sodium Chloride) 100 mls @ 200 mls/hr IV NOW ONE Stop: 07/17/22 17:40 Last Infusion: 07/17/22 18:29 Dose: 0 mls/hr Documented By: Admin: 07/17/22 17:53 Dose: 200 mls/hr Documented By: ARELI Ketorolac Tromethamine (Ketorolac 30 Mg/Ml Vial) 15 mg IV NOW ONE Stop: 07/17/22 18:15 Last Admin: 07/17/22 18:29 Dose: 15 mg Documented By: ARELI Ondansetron HCl (Ondansetron 4 Mg/2 Ml Inj) 4 mg IV NOW ONE Stop: 07/17/22 18:15 Last Admin: 07/17/22 18:29 Dose: 4 mg Documented By: ARELI Vital Signs Vital signs: Vital Signs - 8 hr 07/17/22 16:14 07/17/22 17:16 07/17/22 17:17 Temperature 96.2 F L Pulse Rate 86 88 87 Respiratory Rate 16 18 19 Blood Pressure 158/98 H 137/92 H 140/70 Pulse Oximetry 98 98 97 Oxygen Delivery Method Room Air 07/17/22 17:30 07/17/22 18:00 Temperature Pulse Rate 86 86 Respiratory Rate 20 Blood Pressure 130/90 Pulse Oximetry 97 98 Oxygen Delivery Method MDM - Abdominal Pain <NICK Vyas - Last Filed: 07/17/22 18:38> Lab Data Result diagrams: 07/17/22 16:55 07/17/22 16:55 Labs: Lab Results 07/17/22 07/17/22 07/17/22 Range/Units 16:52 16:55 16:55 WBC 9.1 (4.5-11.0) X10^3/uL RBC 4.84 (4.0-5.2) X10^6/uL Hgb 12.9 (12.0-16.0) g/dL Hct 39.3 (36-46) % MCV 81.1 (80-100) fL MCH 26.7 (26-34) PG MCHC 32.9 (30-36) % RDW 13.0 (11.6-14.8) % Plt Count 416 H (150-400) X10^3/uL Neut % (Auto) 64.5 (50-75) % Lymph % (Auto) 18.5 L (25-40) % [place] % (Auto) 7.9 (3-14) % Eos % (Auto) 8.4 H (2-4) % Baso % (Auto) 0.7 (0-2) % Neut # (Auto) 5800 (8176-8599) /uL Lymph # (Auto) 1700 (8941-2487) /uL [place] # (Auto) 700 (0-900) /uL Eos # (Auto) 800 H (0-450) /uL Baso # (Auto) 100 (0-100) /uL Sodium 140 (137-145) mmol/L Potassium 3.7 (3.4-5.1) mmol/L Chloride 105 (98-107) mmol/L Carbon Dioxide 25 (22-32) mmol/L BUN 11 (7-17) mg/dL Creatinine 0.93 (0.52-1.04) mg/dL Estimated GFR > 60 (>60) mL/min BUN/Creatinine Ratio 11.8 (6-22) Glucose 95 (70-100) mg/dL Calcium 8.9 (8.4-10.2) mg/dL Total Bilirubin 0.3 (0.2-1.3) mg/dL AST 28 (14-36) IU/L ALT 32 (<35) IU/L Alkaline Phosphatase 88 (38-126) U/L Total Protein 7.9 (6.3-8.2) g/dL Albumin 4.4 (3.5-5.0) g/dL Globulin 3.5 (1.7-4.1) g/dL Albumin/Globulin Ratio 1.3 (1.0-2.8) Lipase 70 (23-300) U/L Urine RBC 1-5/hpf (0-5/HPF) Urine WBC 5-10/hpf H (0-5/HPF) Ur Squamous Epith Cells 5-10 /hpf H (0-5/HPF) Urine Bacteria Many (>30) H (None) Ur Culture Indicated? Lighter Point of care testing: Point of Care Testing Test Results Negative Urine Dip Bedside Urine Glucose Negative Bedside Urine Bilirubin - Negative Bedside Urine Ketone - Negative Urine Specific [place] 1.015 Bedside Urine Occult Blood - Negative Bedside Urine pH 6.0 Bedside Urine Protein - Negative Bedside Urine Urobilinogen 0.2 Bedside Urine Nitrite - Negative Bedside Urine Leukocytes ++ 125 Esterase Imaging Data US - abdomen: Radiologist's Impression: PROCEDURE:? US ABDOMEN LIMITED ? INDICATIONS:? appendix ? TECHNIQUE:? Real-time focused scanning was performed of the abdomen with attention to the appendix, with image documentation.? ? COMPARISON:? None. ? FINDINGS:? Appendix visualization:? Not visualized ? ? Associated findings:? Nearby free fluid:? None Lymphadenopathy:? None Tenderness on exam:? None ? IMPRESSION:? Nonvisualization of the appendix.? ? Dictated by: Krystal Brantley M.D. on 07/17/2022 at 18:29 ? ? Approved by: Krystal Brantley M.D. on 07/17/2022 at 18:29 ? MDM Narrative Medical decision making narrative: This is a 26-year-old female presents to the emergency department with right-sided abdominal pain in the lower quadrant since yesterday, reports feeling ill, no appetite, mildly nauseated. Her urine was positive for leukocyte esterase, WBCs and RBCs. She did not complain of dysuria or urinary frequency. She had very mild tenderness to the right lower quadrant, has not had surgery of her abdomen in the past, considered possible appendicitis, she did not have any positive appendicitis signs including psoas sign, rebound tenderness, no pain when she flexes her hip and rotates her right leg. No significant tenderness over McBurney's point. Patient has been afebrile. Discuss close follow-up if her symptoms do not improve or if she has any worsening. She is not had any vomiting, any blood in her stool, has not had a bowel movement today but I presume she is likely dehydrated. Her lab work overall is reassuring, no leukocytosis or anemia, no electrolyte abnormalities, lipase is 70. She was treated for acute cystitis, given 1 g of ceftriaxone, discharged with q.i.d. cephalexin for the next 5 days. Encouraged to follow-up with her primary care provider for a recheck if she is still having symptoms. Will follow-up on urine culture. Encouraged hydration, ibuprofen and Tylenol as needed for pain, Zofran as needed for nausea. No peritoneal signs on abdominal exam. Patient remains p.o. tolerant. Serial abdominal exam without increase in abdominal pain. Given history and exam, low suspicion for acute abdominal process, such as acute cholecystitis, pancreatitis, perforated viscus, atypical appendicitis, colitis, diverticulitis or torsion. Extensive conversation about ER return precautions and need for close follow-up. Patient is appropriate and amenable to discharge home. Vital signs are stable on repeat examination is unremarkable. Patient has been informed of results. Patient has been given strict return to ER precautions for any new or worsening symptoms. Patient understands to follow up closely with outpatient providers as instructed. Patient understands plan and agrees to discharge home. All questions and concerns answered at this time. <Felicity Babin, - Last Filed: 07/18/22 07:39> Lab Data Labs: Lab Results 07/17/22 07/17/22 07/17/22 Range/Units 16:52 16:55 16:55 WBC 9.1 (4.5-11.0) X10^3/uL RBC 4.84 (4.0-5.2) X10^6/uL Hgb 12.9 (12.0-16.0) g/dL Hct 39.3 (36-46) % MCV 81.1 (80-100) fL MCH 26.7 (26-34) PG MCHC 32.9 (30-36) % RDW 13.0 (11.6-14.8) % Plt Count 416 H (150-400) X10^3/uL Neut % (Auto) 64.5 (50-75) % Lymph % (Auto) 18.5 L (25-40) % [place] % (Auto) 7.9 (3-14) % Eos % (Auto) 8.4 H (2-4) % Baso % (Auto) 0.7 (0-2) % Neut # (Auto) 5800 (5561-5584) /uL Lymph # (Auto) 1700 (1980-7422) /uL [place] # (Auto) 700 (0-900) /uL Eos # (Auto) 800 H (0-450) /uL Baso # (Auto) 100 (0-100) /uL Sodium 140 (137-145) mmol/L Potassium 3.7 (3.4-5.1) mmol/L Chloride 105 (98-107) mmol/L Carbon Dioxide 25 (22-32) mmol/L BUN 11 (7-17) mg/dL Creatinine 0.93 (0.52-1.04) mg/dL Estimated GFR > 60 (>60) mL/min BUN/Creatinine Ratio 11.8 (6-22) Glucose 95 (70-100) mg/dL Calcium 8.9 (8.4-10.2) mg/dL Total Bilirubin 0.3 (0.2-1.3) mg/dL AST 28 (14-36) IU/L ALT 32 (<35) IU/L Alkaline Phosphatase 88 (38-126) U/L Total Protein 7.9 (6.3-8.2) g/dL Albumin 4.4 (3.5-5.0) g/dL Globulin 3.5 (1.7-4.1) g/dL Albumin/Globulin Ratio 1.3 (1.0-2.8) Lipase 70 (23-300) U/L Urine RBC 1-5/hpf (0-5/HPF) Urine WBC 5-10/hpf H (0-5/HPF) Ur Squamous Epith Cells 5-10 /hpf H (0-5/HPF) Urine Bacteria Many (>30) H (None) Ur Culture Indicated? Lighter Point of care testing: Point of Care Testing Test Results Negative Urine Dip Bedside Urine Glucose Negative Bedside Urine Bilirubin - Negative Bedside Urine Ketone - Negative Urine Specific [place] 1.015 Bedside Urine Occult Blood - Negative Bedside Urine pH 6.0 Bedside Urine Protein - Negative Bedside Urine Urobilinogen 0.2 Bedside Urine Nitrite - Negative Bedside Urine Leukocytes ++ 125 Esterase Discharge Plan Departure Patient Disposition: Home Clinical Impression: Acute cystitis with hematuria Activity Restrictions/Additional Instructions: *You have been diagnosed with a bladder infection which is likely causing this your abdominal pain. The ultrasound did not show any inflammation to your appendix, and your lab work overall is reassuring, you do not have an elevated white blood cell count, no elevation to the enzymes related to your liver, gallbladder, or other abdominal infection. Please start this antibiotic, we will complete a urine culture and call you if there is any reason to change your antibiotic. If you develop any other significant symptoms of concern, please come back for another evaluation. Please follow-up with your primary care provider if you are still having symptoms or not feeling well after you finish your antibiotics. Thank you for coming in for evaluation and I hope you feel better soon. Please take ibuprofen and Tylenol as needed for your symptoms. This should get better in the next 1-2 days. *What to do: *Please continue to take your regular medications as directed. [x ] New medication prescriptions sent to your pharmacy: [[facility]] [ ] New medication written as a paper prescription [ ] No new medications given *Please follow up with your primary care provider in 2-3 days, call for an appointment. Let them know you were seen in the Emergency Department and that we asked that you be seen for follow-up. We will electronically transmit a record of today's note if your PCP is in our system *If you do not have a primary care provider please contact [phone] to establish care with one of the [facility] primary care providers. *Return to Emergency Department if you should have any new, worsening, or concerning symptoms, such as [fever greater than 101F, chills, worsening pain, persistent vomiting or other bothersome symptoms]. Prescriptions: New cephalexin 500 mg capsule 500 mg PO QID 5 Days Qty: 20 0RF ondansetron 4 mg tablet,disintegrating 4 mg PO Q8H PRN (Reason: nausea and vomiting) Qty: 10 0RF No Action venlafaxine [Effexor XR] 150 mg capsule,extended release 24hr 150 mg PO DAILY Qty: 90 2RF metformin 500 mg tablet 500 mg PO BIDWMEAL Qty: 180 3RF Rx Instructions: Take once a day for week prior to increasing to twice a day zaleplon 5 mg capsule 5 mg PO ONCE Qty: 1 0RF norethindrone ac-eth estradiol 1.5-30 mg-mcg tablet 1 tab PO DAILY Qty: 21 0RF albuterol sulfate 90 mcg/actuation HFA aerosol inhaler 1 - 2 puff Inhalation Q4-6H PRN (Reason: Shortness Of Breath) Qty: 8.5 1RF fexofenadine [Jolanta Allergy] 180 mg tablet 180 mg PO DAILY fluticasone propionate [Flonase Allergy Relief] 50 mcg/actuation spray,suspension 1 spray intranasal DAILY Rx Instructions: administer into each nostril albuterol sulfate 1.25 mg/3 mL solution for nebulization 1.25 mg inhalation QID PRN methylphenidate HCl [Concerta] 36 mg tablet extended release 24hr 36 mg PO DAILY fluticasone propion-salmeterol 500-50 mcg/dose blister with device 2 ea Inhalation BID Qty: 60 3RF Referrals: Adiel Key MD [Primary Care Provider] - Visit Report Forms: Patient Portal/API <Felicity Babin DO - Last Filed: 07/18/22 07:39> Cosign ED Attending Cosignature Attestation: I was immediately available in the department for consultation. Documentation has been reviewed. Patient and plan were not discussed with me.
[2022-07-17 17:44] LABS: Alanine Aminotransferase 32 IU/L (<35); Albumin 4.4 g/dL (3.5-5.0); Albumin Globulin Ratio 1.3 (1.0-2.8); Alkaline Phosphatase 88 U/L (38-126); Aspartate Aminotransferase 28 IU/L (14-36); BUN Creatinine Ratio 11.8 (6-22); Bilirubin Total 0.3 mg/dL (0.2-1.3); Blood Urea Nitrogen 11 mg/dL (7-17); Calcium 8.9 mg/dL (8.4-10.2); Carbon Dioxide 25 mmol/L (22-32); Chloride 105 mmol/L (98-107); Estimated Glomerular Filt Rate > 60 mL/min (>60); Globulin 3.5 g/dL (1.7-4.1); Glucose 95 mg/dL (70-100); HEMOLYSIS < 15 (0-50); Lipase 70 U/L (23-300); Potassium 3.7 mmol/L (3.4-5.1); Sodium 140 mmol/L (137-145); Total Protein 7.9 g/dL (6.3-8.2)
[2022-07-17] MEDS: cefTRIAXone 2,000 MG in SODIUM CHLORIDE 0.9% 100 ML 200 MG IV (17:53)
[2022-07-17 18:00] VITALS: BP 130/90; PULSE 86; RESP 20; O2SAT 98
[2022-07-17] MEDS: ONDANSETRON 4 MG/2 ML INJ IV (18:29)
[2022-07-17] MEDS: KETOROLAC 30 MG/ML VIAL 15 MG IV (18:29)
[2022-07-17 18:36] VITALS: BP 130/70; PULSE 80; RESP 18; O2SAT 98
== END 2022-07-17 18:37 | disposition home or self-care (01) ==
PROVIDERS: Emergency Medicine; Emergency Provider Nurse Practitioner Critical Care Medicine; PCP Family Medicine
DX: N30.01 Acute cystitis with hematuria (principal); Z87.42 Personal history of other diseases of the female genital tract
CPT/HCPCS: 36415; 76705; 80053; 81003; 81015; 81025; 83690; 85025; 87086; 96365; 96375; 99284; J0696; J1885; J2405

== ENCOUNTER 2022-07-19 11:42 | Emergency (ER) | payer OTHER, SELFPAY ==
[2022-07-19 12:12] VITALS: BP 182/119; PULSE 78; RESP 20; TEMP 36.1; O2SAT 99; BMI 46.2
[2022-07-19 12:50] LABS: Add Manual Diff / Slide Review NO; Basophils Absolute Auto 100 /uL (0-100); Basophils Percent Auto 0.7 % (0-2); Eosinophils Absolute Auto 600 /uL (0-450); Eosinophils Percent Auto 7.6 % (2-4); Hematocrit 40.3 % (36-46); Hemoglobin 13.1 g/dL (12.0-16.0); Lymphocytes Absolute Auto 2300 /uL (1100-4500); Mean Corpuscular HGB Conc 32.4 % (30-36); Mean Corpuscular Hemoglobin 26.2 PG (26-34); Monocytes Absolute Auto 700 /uL (0-900); Monocytes Percent Auto 8.6 % (3-14); Neutrophils Absolute Auto 4400 /uL (1500-7000); Neutrophils Percent Auto 55.1 % (50-75); Platelet Count 417 X10^3/uL (150-400); Red Blood Cell Count 4.97 X10^6/uL (4.0-5.2)
[2022-07-19 13:19] LABS: Alanine Aminotransferase 35 IU/L (<35); Albumin 4.4 g/dL (3.5-5.0); Albumin Globulin Ratio 1.3 (1.0-2.8); Alkaline Phosphatase 100 U/L (38-126); Aspartate Aminotransferase 31 IU/L (14-36); BUN Creatinine Ratio 12.5 (6-22); Bilirubin Total 0.2 mg/dL (0.2-1.3); Blood Urea Nitrogen 11 mg/dL (7-17); Calcium 8.9 mg/dL (8.4-10.2); Carbon Dioxide 24 mmol/L (22-32); Chloride 104 mmol/L (98-107); Estimated Glomerular Filt Rate > 60 mL/min (>60); Globulin 3.5 g/dL (1.7-4.1); Glucose 94 mg/dL (70-100); HEMOLYSIS < 15 (0-50); Lipase 81 U/L (23-300); Potassium 3.9 mmol/L (3.4-5.1); Sodium 140 mmol/L (137-145); Total Protein 7.9 g/dL (6.3-8.2)
--- NOTE | 2022-07-19 13:27 | DI.CT.S_ITS ---
PROCEDURE: CT ABDOMEN PELVIS W CON INDICATIONS: Right lower quadrant pain TECHNIQUE: After the administration of intravenous contrast, axial sections were acquired from the lung bases to the pubic symphysis. Coronal and sagittal reformats were performed. For radiation dose reduction, the following was used: automated exposure control, adjustment of mA and/or kV according to patient size. COMPARISON:None. FINDINGS: Lower thorax: The lung bases are clear. Heart size normal. No hiatal hernia. Liver: Normal in size and attenuation. No contour deformity present. Biliary system: No calcified cholelithiasis or pericholecystic inflammation. No intra or extrahepatic bile duct dilatation. Pancreas: Unremarkable without mass or inflammation evident. Spleen: Normal in size and density. Adrenals: Normal morphology and density. Reproductive system: Unremarkable as visualized. Urinary system: Normal renal size and attenuation. No renal calculi, hydronephrosis, or solid mass present. Urinary bladder unremarkable. Gastrointestinal system: Moderate fecal debris throughout the colon, particularly in the right and transverse colon. Appendix: Normal appendix identified. No evidence of appendicitis. Peritoneal spaces: No mesenteric or retroperitoneal adenopathy. No free air. No free fluid. Vasculature: The IVC, aorta and iliac vasculature are unremarkable. Abdominal wall: Abdominal wall intact without evidence of ventral or inguinal hernias. Musculoskeletal: Normal bone mineralization. No acute fractures. IMPRESSION: 1. Moderate fecal debris throughout the colon, particularly in the right and transverse colon. No obstruction. Normal appendix. Approved by: Johann Rodrigez M.D. on 07/19/2022 at 12:57
--- NOTE | 2022-07-19 13:28 | ED.ABDPAIN ---
HPI - Abdominal Pain <Klaus Cao PA-C - Last Filed: 07/19/22 14:22> General Chief Complaint: Abdominal Pain Stated Complaint: [facility] sent UTI getting worse x4 days Time Seen by Provider: 07/19/22 12:27 Mode of arrival: Ambulatory History of Present Illness HPI narrative: Patient is a 26-year-old female presents to the emergency room today with complaint of continued abdominal pain and discomfort. Main area of the abdominal pain is on the right lower quadrant area and radiates to the back. Pain feels like a sharp ache that is about a 5 now about an 8 when it is at its worse. The pain started on Friday of last week and the patient reported to the walk-in clinic next day was referred to the emergency room. Border to the emergency room and had an ultrasound done and was diagnosed with urinary tract infection. States she received IV antibiotics and started to take the oral antibiotics. Did not take oral antibiotics today. States she is been taking ibuprofen and Gas-X that does not help to relieve the pain. He is never had this type pain before states the pain is constant and nothing really makes it better or worse. Last menstrual period was 3 months ago as she is on control pills. So admits to taking metformin for diabetes Vyvanse for ADHD Advair for asthma and another medicine for depression. Also admits that her bowel movements are slightly changed. States that she usually has bowel movements every day but she has missed today and that her stools were small and hard. Denies chest pain shortness of breath or other concerns. Related Data Home Medications Medication Instructions Recorded Confirmed albuterol sulfate 1.25 mg/3 mL 1.25 mg inhalation QID PRN 04/11/21 07/22/22 solution for nebulization fluticasone propionate 50 1 spray intranasal DAILY 04/11/21 07/22/22 mcg/actuation nasal spray,suspension (Flonase Allergy Relief) fexofenadine 180 mg tablet 180 mg PO DAILY 05/09/21 07/22/22 (Jolanta Allergy) Previous Rx's Medication Instructions Recorded fluticasone 500 mcg-salmeterol 50 2 ea inhalation BID #60 ea 02/08/22 mcg/dose blistr powdr for inhalation norethindrone acetate 1.5 1 tab PO DAILY control #21 03/27/22 mg-ethinyl estradiol 30 mcg tablet tabs albuterol sulfate 90 mcg/actuation 1 - 2 puff inhalation Q4-6H PRN 05/22/22 aerosol inhaler Shortness Of Breath #8.5 grams metformin 500 mg tablet 500 mg PO BIDWMEAL Insulin 07/22/22 resistance #180 tabs Allergies Allergy/AdvReac Type Severity Reaction Status Date / Time No Known Drug Allergies Allergy Verified 07/22/22 12:08 Review of Systems <Klaus Cao PA-C - Last Filed: 07/19/22 14:22> Review of Systems Narrative: R.O.S.: General: No fever, chills or fatigue. Cardiovascular: No chest pain or palpitations Respiratory: No S.O.B. HEENT: No congestion, ear pain, rhinorrhea, sore throat or tinnitus Gastrointestinal: Abdominal pain : Urinary tract infection Skin: No rash or associated abnormalities Musculoskeletal: No pain in muscles or joints, no limitation of range of motion, no paresthesia or numbness. ?? Neurological: Awake, alert and in not apparent distress. No Headaches, changes in vision or other related neurological concerns. Patient History <Klaus Cao PA-C - Last Filed: 07/19/22 14:22> Medical History Anxiety and depression Asthma Menstrual irregularity Muscle cramping Preeclampsia Vaginal delivery Surgical History No pertinent past surgical history Social History Smoking Status: Never smoker Smoking Status: Never smoker alcohol intake frequency: a few times a month Substance Use Type: does not use Exam <Klaus Cao PA-C - Last Filed: 07/19/22 14:22> Narrative Exam Narrative: Physical Exam: ? General: Pt is obese, well developed, well nourished, alert, and awake. Not in acute distress. ? Head: Normocephalic, no lesions. Chest: Lungs CTAB, no rales, rhonchi or wheezes. ?? Heart: RRR, no murmurs, rubs or gallops. Eyes: PERRLA, EOM's full, conjunctivae clear. ? Neuro: Physiological, no localizing findings, CN3-12 intact. ?? Extremities: Warm, well perfused, FROM, no deformities, no edema. ?? Skin: Normal, no rashes, no lesions noted. ?? PSYCHIATRIC: The mood is good, no blunted affect. Speech is clear. Thought process is linear, thought content is appropriate. The voice is without significant inflection. Gastrointestinal: Soft; Mild tenderness to palp at the right lower and mid epigastric areas; Neg CVA tenderness; ND; Pos BS with Neg. rebound tenderness. No scars or major deformities noted on Visual Inspection. Initial Vital Signs Initial Vital Signs: Vital Signs Temperature 97.0 F L 07/19/22 12:12 Pulse Rate 78 07/19/22 12:12 Respiratory Rate 20 07/19/22 12:12 Blood Pressure 182/119 H 07/19/22 12:12 Pulse Oximetry 99 07/19/22 12:12 Oxygen Delivery Method 07/19/22 12:12 <Felicity Babin DO - Last Filed: 07/24/22 07:02> Initial Vital Signs Initial Vital Signs: Vital Signs Temperature 97.0 F L 07/19/22 12:12 Pulse Rate 78 07/19/22 12:12 Respiratory Rate 20 07/19/22 12:12 Blood Pressure 182/119 H 07/19/22 12:12 Pulse Oximetry 99 07/19/22 12:12 Oxygen Delivery Method 07/19/22 12:12 Course <Klaus Cao PA-C - Last Filed: 07/19/22 14:22> Orders Ordered: ED Orders 07/19/22 12:15 EKG-12 Lead Stat 07/19/22 12:40 Complete Blood Count AUTO DIFF Stat Comprehensive Metabolic Panel Stat Lipase Stat 07/19/22 13:27 CT abdomen pelvis w con Stat Vital Signs Vital signs: Vital Signs - 8 hr 07/19/22 12:12 Temperature 97.0 F L Pulse Rate 78 Respiratory Rate 20 Blood Pressure 182/119 H Pulse Oximetry 99 Oxygen Delivery Method Room Air <Felicity Babin DO - Last Filed: 07/24/22 07:02> Orders Ordered: ED Orders 07/19/22 12:15 EKG-12 Lead Stat 07/19/22 12:40 Complete Blood Count AUTO DIFF Stat Comprehensive Metabolic Panel Stat Lipase Stat 07/19/22 13:27 CT abdomen pelvis w con Stat Vital Signs Vital signs: Vital Signs - 8 hr 07/19/22 12:12 Temperature 97.0 F L Pulse Rate 78 Respiratory Rate 20 Blood Pressure 182/119 H Pulse Oximetry 99 Oxygen Delivery Method Room Air MDM - Abdominal Pain <Klaus Cao PA-C - Last Filed: 07/19/22 14:22> Lab Data Result diagrams: 07/19/22 12:40 07/19/22 12:40 Labs: Lab Results 07/19/22 07/19/22 07/19/22 Range/Units 12:40 12:40 14:06 WBC 8.0 (4.5-11.0) X10^3/uL RBC 4.97 (4.0-5.2) X10^6/uL Hgb 13.1 (12.0-16.0) g/dL Hct 40.3 (36-46) % MCV 81.0 (80-100) fL MCH 26.2 (26-34) PG MCHC 32.4 (30-36) % RDW 13.0 (11.6-14.8) % Plt Count 417 H (150-400) X10^3/uL Neut % (Auto) 55.1 (50-75) % Lymph % (Auto) 28.0 (25-40) % Conway % (Auto) 8.6 (3-14) % Eos % (Auto) 7.6 H (2-4) % Baso % (Auto) 0.7 (0-2) % Neut # (Auto) 4400 (7878-1669) /uL Lymph # (Auto) 2300 (5373-6877) /uL Conway # (Auto) 700 (0-900) /uL Eos # (Auto) 600 H (0-450) /uL Baso # (Auto) 100 (0-100) /uL Sodium 140 (137-145) mmol/L Potassium 3.9 (3.4-5.1) mmol/L Chloride 104 (98-107) mmol/L Carbon Dioxide 24 (22-32) mmol/L BUN 11 (7-17) mg/dL Creatinine 0.88 (0.52-1.04) mg/dL Estimated GFR > 60 (>60) mL/min BUN/Creatinine Ratio 12.5 (6-22) Glucose 94 (70-100) mg/dL Calcium 8.9 (8.4-10.2) mg/dL Total Bilirubin 0.2 (0.2-1.3) mg/dL AST 31 (14-36) IU/L ALT 35 H (<35) IU/L Alkaline Phosphatase 100 (38-126) U/L Total Protein 7.9 (6.3-8.2) g/dL Albumin 4.4 (3.5-5.0) g/dL Globulin 3.5 (1.7-4.1) g/dL Albumin/Globulin Ratio 1.3 (1.0-2.8) Lipase 81 (23-300) U/L Urine RBC 1-5/hpf (0-5/HPF) Urine WBC 5-10/hpf H (0-5/HPF) Ur Squamous Epith Cells 5-10 /hpf H (0-5/HPF) Urine Bacteria Occasional (0-1) (None) Ur Culture Indicated? Specimen cultured Point of care testing: Point of Care Testing Test Results Negative Urine Dip Bedside Urine Glucose Negative Bedside Urine Bilirubin - Negative Bedside Urine Ketone - Negative Urine Specific [place]olia 1.025 Bedside Urine Occult Blood - Negative Bedside Urine pH 6.0 Bedside Urine Protein +/- 15 Bedside Urine Urobilinogen - Negative Bedside Urine Nitrite - Negative Bedside Urine Leukocytes - Negative Esterase MDM Narrative Medical decision making narrative: Patient 26 year old female who is returning to the emergency room with continued complaint right-sided abdominal and generalized abdominal pain. Patient is being treated for urinary tract infection and had a negative abdominal ultrasound done at this emergency room on Friday. HPI reveals other concerns the possible pelvic etiology to include tones. CT of abdomen and pelvis with contrast was ordered and was essentially negative except for moderate stool in the abdomen. Patient discharged and advised to continue her medications for urinary tract infection. Provider offered stool softeners but patient stated that she had his medication at home. Patient also advised to return to emergency room for any emergent concerns arise patient agrees with plan <Felicity Babin, - Last Filed: 07/24/22 07:02> Lab Data Labs: Lab Results 07/19/22 07/19/22 07/19/22 Range/Units 12:40 12:40 14:06 WBC 8.0 (4.5-11.0) X10^3/uL RBC 4.97 (4.0-5.2) X10^6/uL Hgb 13.1 (12.0-16.0) g/dL Hct 40.3 (36-46) % MCV 81.0 (80-100) fL MCH 26.2 (26-34) PG MCHC 32.4 (30-36) % RDW 13.0 (11.6-14.8) % Plt Count 417 H (150-400) X10^3/uL Neut % (Auto) 55.1 (50-75) % Lymph % (Auto) 28.0 (25-40) % Conway % (Auto) 8.6 (3-14) % Eos % (Auto) 7.6 H (2-4) % Baso % (Auto) 0.7 (0-2) % Neut # (Auto) 4400 (6365-9240) /uL Lymph # (Auto) 2300 (3930-6037) /uL Conway # (Auto) 700 (0-900) /uL Eos # (Auto) 600 H (0-450) /uL Baso # (Auto) 100 (0-100) /uL Sodium 140 (137-145) mmol/L Potassium 3.9 (3.4-5.1) mmol/L Chloride 104 (98-107) mmol/L Carbon Dioxide 24 (22-32) mmol/L BUN 11 (7-17) mg/dL Creatinine 0.88 (0.52-1.04) mg/dL Estimated GFR > 60 (>60) mL/min BUN/Creatinine Ratio 12.5 (6-22) Glucose 94 (70-100) mg/dL Calcium 8.9 (8.4-10.2) mg/dL Total Bilirubin 0.2 (0.2-1.3) mg/dL AST 31 (14-36) IU/L ALT 35 H (<35) IU/L Alkaline Phosphatase 100 (38-126) U/L Total Protein 7.9 (6.3-8.2) g/dL Albumin 4.4 (3.5-5.0) g/dL Globulin 3.5 (1.7-4.1) g/dL Albumin/Globulin Ratio 1.3 (1.0-2.8) Lipase 81 (23-300) U/L Urine RBC 1-5/hpf (0-5/HPF) Urine WBC 5-10/hpf H (0-5/HPF) Ur Squamous Epith Cells 5-10 /hpf H (0-5/HPF) Urine Bacteria Occasional (0-1) (None) Ur Culture Indicated? Specimen cultured Point of care testing: Point of Care Testing Test Results Negative Urine Dip Bedside Urine Glucose Negative Bedside Urine Bilirubin - Negative Bedside Urine Ketone - Negative Urine Specific [place] 1.025 Bedside Urine Occult Blood - Negative Bedside Urine pH 6.0 Bedside Urine Protein +/- 15 Bedside Urine Urobilinogen - Negative Bedside Urine Nitrite - Negative Bedside Urine Leukocytes - Negative Esterase Imaging Data CT scan - abdomen/pelvis: Radiologist's Impression: CT Scan Report Signed Patient: Day Solo MR#: [id number] : 1995 Acct:[id number] Age/Sex: 26 / F Date of Service: 07/19/22 Loc: ED Accession Number: [id number] ?? Procedure: CT abdomen pelvis w con Ordering Provider: Klaus Cao P.A-C PROCEDURE:? CT ABDOMEN PELVIS W CON ? INDICATIONS:? Right lower quadrant pain ? TECHNIQUE:? After the administration of intravenous contrast, axial sections were acquired from the lung bases to the pubic symphysis.? Coronal and sagittal reformats were performed.? For radiation dose reduction, the following was used:? automated exposure control, adjustment of mA and/or kV according to patient size.? ? COMPARISON:None. ? FINDINGS: ? Lower thorax: The lung bases are clear.? Heart size normal.? No hiatal hernia. ? Liver:? Normal in size and attenuation. No contour deformity present. ? Biliary system:? No calcified cholelithiasis or pericholecystic inflammation.? No intra or extrahepatic bile duct dilatation. ? Pancreas:? Unremarkable without mass or inflammation evident. ? Spleen:? Normal in size and density. ? Adrenals:? Normal morphology and density. ? Reproductive system:? Unremarkable as visualized. ? Urinary system:? Normal renal size and attenuation. No renal calculi, hydronephrosis, or solid mass present.? Urinary bladder unremarkable. ? Gastrointestinal system:? Moderate fecal debris throughout the colon, particularly in the right and transverse colon. ? Appendix:? Normal appendix identified.? No evidence of appendicitis. ? Peritoneal spaces:? No mesenteric or retroperitoneal adenopathy.? No free air.? No free fluid.? ? Vasculature:? The IVC, aorta and iliac vasculature are unremarkable. ? Abdominal wall:? Abdominal wall intact without evidence of ventral or inguinal hernias. ? Musculoskeletal:? Normal bone mineralization.? No acute fractures.? ? IMPRESSION: ? 1. Moderate fecal debris throughout the colon, particularly in the right and transverse colon.? No obstruction.? Normal appendix. ? ? Discharge Plan Departure Patient Disposition: Home Clinical Impression: Abdominal pain, Constipation, UTI (urinary tract infection) Activity Restrictions/Additional Instructions: *You have been diagnosed with abdominal pain secondary to constipation. I suggest she continue to take your [id number]-ancbkhe and home remedies for constipation. I also suggest she continue to take your antibiotics regarding your tract infection. Diagnostics today not revealed any additional concerns. Please return to the emergency room if any emergent concerns arise. [ ] *What to do: *Please continue to take your regular medications as directed. [ ] New medication prescriptions sent to your pharmacy: [ ] [ ] New medication written as a paper prescription [x] No new medications given *Please follow up with your primary care provider in 2-3 days, call for an appointment. Let them know you were seen in the Emergency Department and that we ask that you be seen in follow up. We will electronically transmit a record of today's note if your PCP is in our system *If you do not have a primary care provider please contact the [facility] Resource line at [phone]. They will ask some questions about your medical history and help get you set up with a doctor in the community. *Return to Emergency Department if you should have any new, worsening or concerning symptoms, such as [fever greater than 101 F, shaking chills, worsening pain, persistent vomiting or other bothersome symptoms] Prescriptions: No Action norethindrone ac-eth estradiol 1.5-30 mg-mcg tablet 1 tab PO DAILY Qty: 21 0RF albuterol sulfate 90 mcg/actuation HFA aerosol inhaler 1 - 2 puff Inhalation Q4-6H PRN (Reason: Shortness Of Breath) Qty: 8.5 1RF fexofenadine [Jolanta Allergy] 180 mg tablet 180 mg PO DAILY fluticasone propionate [Flonase Allergy Relief] 50 mcg/actuation spray,suspension 1 spray intranasal DAILY Rx Instructions: administer into each nostril albuterol sulfate 1.25 mg/3 mL solution for nebulization 1.25 mg inhalation QID PRN fluticasone propion-salmeterol 500-50 mcg/dose blister with device 2 ea Inhalation BID Qty: 60 3RF metformin 500 mg tablet 500 mg PO BIDWMEAL Qty: 180 1RF Rx Instructions: Take once a day for week prior to increasing to twice a day Referrals: Adiel Key MD [Primary Care Provider] - Visit Report Forms: Patient Portal/API <Felicity Babin DO - Last Filed: 07/24/22 07:02> Cosign ED Attending Juancarlosature Attestation: I was immediately available in the department for consultation. Documentation has been reviewed. I agree with assessment and plan.
[2022-07-19 14:45] LABS: RBC Urine 1-5/HPF (0-5/HPF)
[2022-07-19 14:46] LABS: Bacteria Urine Occasional (0-1); Culture Indicated Urine Specimen Cultured; Squamous Epithelial Cell Urine 5-10 /HPF (0-5/HPF); WBC Urine 5-10/HPF (0-5/HPF)
== END 2022-07-19 14:35 | disposition home or self-care (01) ==
PROVIDERS: Emergency Medicine; Emergency Provider Physician Assistant; PCP Family Medicine
DX: K59.00 Constipation, unspecified (principal); N39.0 Urinary tract infection, site not specified; R10.31 Right lower quadrant pain
CPT/HCPCS: 36415; 74177; 80053; 81003; 81015; 81025; 83690; 85025; 87086; 99283; 99284; Q9967

== ENCOUNTER → 2022-10-21 16:56 | Outpatient (CLI) | payer OTHER, SELFPAY ==
[2022-10-21 17:55] LABS: Add Manual Diff / Slide Review NO; Basophils Absolute Auto 0 /uL (0-100); Basophils Percent Auto 0.5 % (0-2); Eosinophils Absolute Auto 400 /uL (0-450); Eosinophils Percent Auto 4.7 % (2-4); Hematocrit 41.3 % (36-46); Hemoglobin 13.5 g/dL (12.0-16.0); Lymphocytes Absolute Auto 2600 /uL (1100-4500); Lymphocytes Percent Auto 27.5 % (25-40); Mean Corpuscular HGB Conc 32.8 % (30-36); Mean Corpuscular Hemoglobin 25.7 PG (26-34); Mean Corpuscular Volume 78.4 fL (80-100); Monocytes Absolute Auto 600 /uL (0-900); Monocytes Percent Auto 6.3 % (3-14); Neutrophils Absolute Auto 5700 /uL (1500-7000); Platelet Count 434 X10^3/uL (150-400); Red Blood Cell Count 5.27 X10^6/uL (4.0-5.2); Red Cell Distribution Width 13.5 % (11.6-14.8); White Blood Cell Count 9.3 X10^3/uL (4.5-11.0)
[2022-10-21 18:09] LABS: Alanine Aminotransferase 26 IU/L (<35); Albumin 4.2 g/dL (3.5-5.0); Albumin Globulin Ratio 1.2 (1.0-2.8); Alkaline Phosphatase 82 U/L (38-126); Aspartate Aminotransferase 24 IU/L (14-36); BUN Creatinine Ratio 9.1 (6-22); Bilirubin Total 0.3 mg/dL (0.2-1.3); Blood Urea Nitrogen 7 mg/dL (7-17); Calcium 8.8 mg/dL (8.4-10.2); Carbon Dioxide 23 mmol/L (22-32); Chloride 107 mmol/L (98-107); Estimated Glomerular Filt Rate > 60 mL/min (>60); Globulin 3.5 g/dL (1.7-4.1); Glucose 83 mg/dL (70-100); HEMOLYSIS < 15 (0-50); Potassium 3.9 mmol/L (3.4-5.1); Sodium 140 mmol/L (137-145); Total Protein 7.7 g/dL (6.3-8.2)
== END ==
PROVIDERS: PCP Family Medicine; Referring Provider Family Medicine; Visit Provider Family Medicine
DX: D64.9 Anemia, unspecified (principal); R00.2 Palpitations
CPT/HCPCS: 36415; 80053; 84443; 85025

== ENCOUNTER → 2022-11-11 09:51 | Outpatient (CLI) | payer OTHER, SELFPAY ==
[2022-11-11 11:27] LABS: HEMOLYSIS < 15 (0-50); Iron 86 ug/dL (37-170)
[2022-11-11 11:37] LABS: Percent Iron Saturation 19 % (15-50); Total Iron Binding Capacity 447 ug/dL (265-497); Transferrin 311 mg/dL (206-381)
[2022-11-11 12:00] LABS: Ferritin 21 ng/mL (6-137)
== END ==
PROVIDERS: PCP Family Medicine; Referring Provider Family Medicine; Visit Provider Family Medicine
DX: R71.8 Other abnormality of red blood cells (principal)
CPT/HCPCS: 36415; 82728; 83540; 83550

== ENCOUNTER → 2022-11-17 14:31 | Outpatient (CLI) | payer OTHER, SELFPAY ==
[2022-11-17 16:13] LABS: Influenza A - CEPHEID Flu A NEGATIVE (NEGATIVE); Influenza B - CEPHEID Flu B NEGATIVE (NEGATIVE); Respiratory Syncytial Virus Negative (Negative)
[2022-11-17 16:18] LABS: COVID-19 CEPHEID 4-PLEX PCR Negative (Negative)
== END ==
PROVIDERS: PCP Family Medicine; Visit Provider Nurse Practitioner Family
DX: H92.09 Otalgia, unspecified ear (principal); J34.89 Other specified disorders of nose and nasal sinuses
CPT/HCPCS: 0241U

== ENCOUNTER → 2022-12-25 13:45 | Outpatient (CLI) | payer OTHER, SELFPAY | PROVIDERS: PCP Family Medicine; Referring Provider Family Medicine; Visit Provider Family Medicine | DX: R00.2 Palpitations (principal) ==